=== PATIENT | female | born 1955 | race Caucasian/White ===

== ENCOUNTER 2016-10-21 16:37 | Emergency (ER) ==
[2016-10-21 16:46] VITALS: BP 145/83; TEMP 97.8; BMI 33.8
== END 2016-10-21 16:58 | disposition left against medical advice (07) ==
LOC: ED 16:37
DX: R05 Cough (principal); H92.01 Otalgia, right ear; J02.9 Acute pharyngitis, unspecified; R50.9 Fever, unspecified
CPT/HCPCS: 99282

== ENCOUNTER 2016-10-31 09:22 | Outpatient (CLI) ==
[2016-10-31 10:21] LABS: BASOPHILS # (AUTO) 0.1 K/uL (0-0.2); BASOPHILS % (AUTO) 0.8 % (0.0-3.0); EOSINOPHILS # (AUTO) 0.1 K/ul (0.0-0.7); EOSINOPHILS % (AUTO) 1.8 % (0.0-7.0); HEMOGLOBIN 12.6 g/dl (12.0-16.0); IMMATURE GRANULOCYTE % (AUTO) 0.5 % (0.0-5.0); LYMPHOCYTES # (AUTO) 2.6 K/uL (0.60-3.4); LYMPHOCYTES % (AUTO) 41.8 (10.0-50.0); MEAN CORPUSCULAR HEMOGLOBIN 27.3 pg (27.0-31.0); MEAN CORPUSCULAR HGB CONC 32.3 (31.8-35.4); MEAN CORPUSCULAR VOLUME 84.6 fl (81.0-99.0); MONOCYTES # (AUTO) 0.4 K/uL (0.4-2.0); MONOCYTES % (AUTO) 6.9 (0-10); NEUTROPHILS % (AUTO) 48.2; PLATELET COUNT 221 10^3/uL (140-440); RED BLOOD COUNT 4.61 10^6/ul (4.20-5.40); WHITE BLOOD COUNT 6.22 K/ul (4.6-10.2)
[2016-10-31 10:51] LABS: ALBUMIN 3.4 g/dL (3.4-5.0); ALBUMIN/GLOBULIN RATIO 0.83; ANION GAP 13.2; BILIRUBIN,TOTAL 0.3 mg/dL (0.00-1.20); BUN/CREATININE RATIO 11.68; CALCIUM 9.1 mg/dL (8.2-10.2); CHOL/HDL RATIO 4.6 (4.5-5.5); CREATININE 0.77 mg/dL (0.60-1.30); POTASSIUM 4.2 mmol/L (3.5-5.10); TOTAL PROTEIN 7.5 g/dL (6.4-8.2)
== END 2016-10-31 09:23 | disposition home or self-care (01) ==
LOC: LAB 09:22
PROVIDERS: ATTEND Emergency Medicine
DX: E11.9 Type 2 diabetes mellitus without complications (principal); I10 Essential (primary) hypertension; E78.5 Hyperlipidemia, unspecified; E66.9 Obesity, unspecified
CPT/HCPCS: 36415; 80053; 80061; 83036; 84443; 85025

== ENCOUNTER 2017-01-31 10:23 | Outpatient (CLI) ==
[2017-01-31 10:44] LABS: BASOPHILS % (AUTO) 0.4 % (0.0-3.0); EOSINOPHILS # (AUTO) 0.1 K/ul (0.0-0.7); EOSINOPHILS % (AUTO) 1.6 % (0.0-7.0); HEMATOCRIT 38.3 % (37.0-47.0); IMMATURE GRANULOCYTE % (AUTO) 0.3 % (0.0-5.0); LYMPHOCYTES # (AUTO) 2.8 K/uL (0.60-3.4); LYMPHOCYTES % (AUTO) 41.4 (10.0-50.0); MEAN CORPUSCULAR HGB CONC 33.9 (31.8-35.4); MEAN CORPUSCULAR VOLUME 82.5 fl (81.0-99.0); MONOCYTES # (AUTO) 0.4 K/uL (0.4-2.0); NEUTROPHILS # (AUTO) 3.4 K/ul (2.0-6.9); NEUTROPHILS % (AUTO) 50.3; PLATELET COUNT 169 10^3/uL (140-440); RED BLOOD COUNT 4.64 10^6/ul (4.20-5.40); WHITE BLOOD COUNT 6.72 K/ul (4.6-10.2)
[2017-01-31 11:25] LABS: ALBUMIN 3.6 g/dL (3.4-5.0); ALBUMIN/GLOBULIN RATIO 0.88; CALCIUM 9.5 mg/dL (8.2-10.2); POTASSIUM 4.2 mmol/L (3.5-5.10); TOTAL PROTEIN 7.7 g/dL (6.4-8.2)
[2017-01-31 11:26] LABS: ANION GAP 11.2; BILIRUBIN,TOTAL 0.38 mg/dL (0.00-1.20); BUN/CREATININE RATIO 12.82; CHOL/HDL RATIO 4.1 (4.5-5.5); CREATININE 0.78 mg/dL (0.60-1.30)
== END 2017-01-31 10:24 | disposition home or self-care (01) ==
LOC: LAB 10:23
PROVIDERS: ATTEND Emergency Medicine
DX: E11.9 Type 2 diabetes mellitus without complications (principal); I10 Essential (primary) hypertension; E78.5 Hyperlipidemia, unspecified
CPT/HCPCS: 36415; 80053; 80061; 82306; 82607; 83036; 84443; 85025

== ENCOUNTER 2017-04-10 19:59 | Emergency (ER) ==
[2017-04-10 20:02] VITALS: BP 152/76; TEMP 98; BMI 30.2
[2017-04-10 20:25] LABS: BASOPHILS # (AUTO) 0.1 K/uL (0-0.2); BASOPHILS % (AUTO) 0.6 % (0.0-3.0); EOSINOPHILS # (AUTO) 0.1 K/ul (0.0-0.7); EOSINOPHILS % (AUTO) 1.7 % (0.0-7.0); HEMATOCRIT 38.7 % (37.0-47.0); HEMOGLOBIN 12.8 g/dl (12.0-16.0); IMMATURE GRANULOCYTE % (AUTO) 0.2 % (0.0-5.0); LYMPHOCYTES # (AUTO) 3.6 K/uL (0.60-3.4); LYMPHOCYTES % (AUTO) 43.5 (10.0-50.0); MEAN CORPUSCULAR HEMOGLOBIN 27.7 pg (27.0-31.0); MEAN CORPUSCULAR HGB CONC 33.1 (31.8-35.4); MEAN CORPUSCULAR VOLUME 83.8 fl (81.0-99.0); MONOCYTES # (AUTO) 0.6 K/uL (0.4-2.0); MONOCYTES % (AUTO) 7.2 (0-10); NEUTROPHILS # (AUTO) 3.9 K/ul (2.0-6.9); NEUTROPHILS % (AUTO) 46.8; PLATELET COUNT 211 10^3/uL (140-440); RED BLOOD COUNT 4.62 10^6/ul (4.20-5.40); WHITE BLOOD COUNT 8.35 K/ul (4.6-10.2)
--- NOTE | 2017-04-10 20:29 | ED.PDOC ---
General ED Provider: Dr. IVAN CLAUDIO Chief Complaint: Chest Pain Stated Complaint: patient is a 61 year old female who comes to the ER with c/o pain to left shoulder radiating into scapula. states it makes her feel like she has to take a deep breath. Associated with diaphoresis and Nausea Time Seen by Physician: 20:26 Mode of Arrival: Walk-In Information Source: Patient Primary Care Provider: BORIS POWELLTaz Nursing and Triage Documentation Reviewed and Agree: Yes Review of Systems - Review Of Systems Constitutional: Reports: No symptoms Eyes: Reports: No symptoms Ears, Nose, Mouth, Throat: Reports: No symptoms Respiratory: Reports: Short of air Cardiac: Reports: Chest pain GI: Reports: Abdominal pain : Reports: No symptoms Musculoskeletal: Reports: No symptoms Skin: Reports: No symptoms Neurological: Reports: No symptoms Endocrine: Reports: No symptoms Hematologic/Lymphatic: Reports: No symptoms All Other Systems: Reviewed and Negative Past Medical History - Past Medical History Previously Healthy: Yes Endocrine: Reports: DM 2 Cardiovascular: Reports: Hypertension Respiratory: Reports: None Hematological: Reports: None Gastrointestinal: Reports: None Genitourinary: Reports: None Neuro/Psych: Reports: None Musculoskeletal: Reports: None Cancer: Reports: None Last Menstrual Period: n/a - Surgical History General Surgical History: Reports: Unknown - Family History Family History: Reports: Unknown - Social History Smoking Status: Never smoker Hx Substance Use: No Alcohol Screening: None Physical Exam - Physical Exam Appearance: Ill-appearing, Obese Ill-appearing: Mild Pain Distress: Mild Eyes: CHARLES, EOMI, Conjunctiva clear ENT: Ears normal, Nose normal, Oropharynx normal Neck: Supple Respiratory: Airway patent, Breath sounds clear, Breath sounds equal, Respirations nonlabored Cardiovascular: RRR, Pulses normal, No rub, No murmur GI/: Soft, Nontender, No masses, Bowel sounds normal, No Organomegaly Musculoskeletal: Normal strength, ROM intact, No edema, No calf tenderness Skin: Warm, Dry, Normal color Neurological: Sensation intact, Motor intact, Reflexes intact, Cranial nerves intact, Alert, Oriented Psychiatric: Affect appropriate, Mood appropriate Interpretation - Radiology Interpretation Radiology Interpretation By: ED Physician Radiology Results: Negative Exam Interpreted: Portable CXR - EKG Interpretation Rate: Normal Rhythm: Sinus Ectopy: None [place]: NL ST Segment: Normal Critical Care Note - Critical Care Note Total Time (mins): 20 Course - Course Hematology/Chemistry: 04/10/17 20:20 04/10/17 20:20 Orders, Labs, Meds: Lab Review 04/10/17 20:20 WBC 8.35 RBC 4.62 Hgb 12.8 Hct 38.7 MCV 83.8 MCH 27.7 MCHC 33.1 RDW Coeff of Wilfredo 12.7 Plt Count 211 Immature Gran % (Auto) 0.2 Neut % (Auto) 46.8 Lymph % (Auto) 43.5 [place] % (Auto) 7.2 Eos % (Auto) 1.7 Baso % (Auto) 0.6 Immature Gran # (Auto) 0.0 Neut # 3.9 Lymph # 3.6 H [place] # 0.6 Eos # 0.1 Baso # 0.1 Sodium 136 Potassium 4.2 Chloride 100 Carbon Dioxide 25 Anion Gap 15.2 BUN 12 Creatinine 0.81 Estimated GFR (MDRD) 72.00 BUN/Creatinine Ratio 14.81 Glucose 250 H Calcium 9.4 Total Bilirubin 0.30 AST 18 ALT 17 Alkaline Phosphatase 58 Total Creatine Kinase 42 Troponin I < 0.0100 Total Protein 7.6 Albumin 3.7 Globulin 3.9 Albumin/Globulin Ratio 0.95 Orders Category Date Time Status EKG-(ED ONLY) Stat CARDIO 04/10/17 20:10 Completed CBC W/ AUTO DIFF Stat LAB 04/10/17 20:20 Completed COMPREHENSIVE METABOLIC PANEL Stat LAB 04/10/17 20:20 Completed CREATINE KINASE Stat LAB 04/10/17 20:20 Completed TROPONIN I Stat LAB 04/10/17 20:20 Completed CHEST, 1V AP ONLY Stat RADS 04/10/17 20:10 Completed SHOULDER, LEFT MIN 2V Stat RADS 04/10/17 20:28 Completed Vital Signs: Temp Pulse Resp BP Pulse Ox 04/10/17 20:00 98.0 F 88 20 152/76 H 97 LIZZIE Risk Score Age >/= 65: No >/= 3 CAD Risk Factors: Yes Known CAD (Stenosis >/= 50%): No ASA Use in Past 7 Days: No Severe Angina (>/= 2 episodes in 24 hours): No EKG ST Changes >/= 0.5mm: No Postive Cardiac Marker: No LIZZIE Total Score: 1 LIZZIE Risk Score: Risk Score Odds of by 30D 0 0.1 (0.1-0.2) 1 0.3 (0.2-0.3) 2 0.4 (0.3-0.5) 3 0.7 (0.6-0.9) 4 1.2 (1.0-1.5) 5 2.2 (1.9-2.6) 6 3.0 (2.5-3.6) 7 4.8 (3.8-6.1) Departure - Departure Time of Disposition: 21:00 Disposition: AMA Discharge Problem: Dyspepsia, Chest pain Instructions: Chest Pain (ED) Condition: Stable Pt referred to PMD for follow-up: No Allergies/Adverse Reactions: Allergies morphine Adverse Reaction (Verified 04/10/17 20:04) tramadol HCl [From [facility]] Adverse Reaction (Verified 04/10/17 20:04) Nausea Home Medications: Ambulatory Orders Alprazolam [Xanax] 0.5 mg PO BEDTIME 09/15/15 Hydrocodone Bit/Acetaminophen [[place] 5-325] 1 tab PO DIRECTED 02/12/16 Lisinopril [Zestril] 5 mg PO DAILY 10/21/16 Ranitidine HCl [Zantac] 150 mg PO BIDAC 04/10/17
[2017-04-10] MEDS ORDERED: URO-JET MUCOUSMEMB STA (20:48)
[2017-04-10 20:51] LABS: ALANINE AMINOTRANSFERASE 17 U/L (12-78); ALBUMIN 3.7 g/dL (3.4-5.0); ALBUMIN/GLOBULIN RATIO 0.95; ALKALINE PHOSPHATASE 58 U/L (53-141); ANION GAP 15.2; ASPARTATE AMINO TRANSFERASE 18 U/L (15-37); BLOOD UREA NITROGEN 12 mg/dL (7-18); BUN/CREATININE RATIO 14.81; CALCIUM 9.4 mg/dL (8.2-10.2); CARBON DIOXIDE 25 mmol/L (21-32); CHLORIDE 100 mmol/L (98-107); CREATINE KINASE 42 U/L; CREATININE 0.81 mg/dL (0.60-1.30); GLUCOSE 250 mg/dL (70-110); POTASSIUM 4.2 mmol/L (3.5-5.10); SODIUM 136 mmol/L (136-145); TOTAL PROTEIN 7.6 g/dL (6.4-8.2)
--- NOTE | 2017-04-10 21:04 | DI ---
EXAM: Chest, one-view HISTORY: Chest and shoulder pain FINDINGS: Cardiac and mediastinal contours are normal. Pulmonary vasculature is normal. Lungs are clear. Bony thorax is unremarkable. IMPRESSION: Within normal limits
--- NOTE | 2017-04-10 21:05 | DI ---
EXAM: Left shoulder three view HISTORY: Shoulder pain FINDING/IMPRESSION: No acute bony or articular abnormality. Mild acromioclavicular joint osteoarthr itic enlargement. The glenohumeral joint appears normal.
== END 2017-04-10 21:04 | disposition left against medical advice (07) ==
LOC: ED 19:59
DX: R07.9 Chest pain, unspecified (principal); R10.13 Epigastric pain; E11.9 Type 2 diabetes mellitus without complications; I10 Essential (primary) hypertension; M25.512 Pain in left shoulder; Z79.899 Other long term (current) drug therapy
CPT/HCPCS: 36415; 80053; 82550; 84484; 85025; 93005; 93010; 99284

== ENCOUNTER 2017-06-14 14:15 | Outpatient (CLI) ==
[2017-06-14 14:44] LABS: BASOPHILS # (AUTO) 0.1 K/uL (0-0.2); BASOPHILS % (AUTO) 0.7 % (0.0-3.0); EOSINOPHILS # (AUTO) 0.1 K/ul (0.0-0.7); EOSINOPHILS % (AUTO) 1.9 % (0.0-7.0); HEMATOCRIT 36.3 % (37.0-47.0); HEMOGLOBIN 12.5 g/dl (12.0-16.0); IMMATURE GRANULOCYTE % (AUTO) 0.3 % (0.0-5.0); LYMPHOCYTES # (AUTO) 2.5 K/uL (0.60-3.4); LYMPHOCYTES % (AUTO) 36.5 (10.0-50.0); MEAN CORPUSCULAR HEMOGLOBIN 28.7 pg (27.0-31.0); MEAN CORPUSCULAR HGB CONC 34.4 (31.8-35.4); MEAN CORPUSCULAR VOLUME 83.4 fl (81.0-99.0); MONOCYTES # (AUTO) 0.4 K/uL (0.4-2.0); MONOCYTES % (AUTO) 5.8 (0-10); NEUTROPHILS # (AUTO) 3.7 K/ul (2.0-6.9); NEUTROPHILS % (AUTO) 54.8; PLATELET COUNT 169 10^3/uL (140-440); RED BLOOD COUNT 4.35 10^6/ul (4.20-5.40); WHITE BLOOD COUNT 6.72 K/ul (4.6-10.2)
[2017-06-14 16:09] LABS: ALBUMIN 3.4 g/dL (3.4-5.0); ALBUMIN/GLOBULIN RATIO 0.92; ANION GAP 18.1; BILIRUBIN,TOTAL 0.33 mg/dL (0.00-1.20); CALCIUM 9.5 mg/dL (8.2-10.2); CHOL/HDL RATIO 3.8 (4.5-5.5); CREATININE 0.8 mg/dL (0.60-1.30); POTASSIUM 4.1 mmol/L (3.5-5.10); TOTAL PROTEIN 7.1 g/dL (6.4-8.2)
[2017-06-15 06:16] LABS: CANCER ANTIGEN 27.29 11.7 U/mL (0.0-38.6)
[2017-06-15 07:20] LABS: CARCINOEMBRYONIC ANTIGEN 2.2 ng/mL (0.0-4.7)
== END 2017-06-14 14:16 | disposition home or self-care (01) ==
LOC: LAB 14:15
PROVIDERS: ATTEND Internal Medicine
DX: I10 Essential (primary) hypertension (principal); E66.9 Obesity, unspecified; C50.911 Malignant neoplasm of unspecified site of right female breast
CPT/HCPCS: 36415; 80053; 80061; 82378; 83036; 84443; 85025; 86300

== ENCOUNTER 2017-09-24 12:56 | Outpatient (CLI) ==
[2017-09-24 13:15] LABS: BASOPHILS % (AUTO) 0.6 % (0.0-3.0); EOSINOPHILS # (AUTO) 0.1 K/ul (0.0-0.7); HEMATOCRIT 38.2 % (37.0-47.0); HEMOGLOBIN 13.1 g/dl (12.0-16.0); IMMATURE GRANULOCYTE % (AUTO) 0.3 % (0.0-5.0); LYMPHOCYTES # (AUTO) 2.5 K/uL (0.60-3.4); LYMPHOCYTES % (AUTO) 38.4 (10.0-50.0); MEAN CORPUSCULAR HEMOGLOBIN 28.5 pg (27.0-31.0); MEAN CORPUSCULAR HGB CONC 34.3 (31.8-35.4); MONOCYTES # (AUTO) 0.4 K/uL (0.4-2.0); MONOCYTES % (AUTO) 6.6 (0-10); NEUTROPHILS # (AUTO) 3.4 K/ul (2.0-6.9); NEUTROPHILS % (AUTO) 52.1; PLATELET COUNT 181 10^3/uL (140-440); WHITE BLOOD COUNT 6.53 K/ul (4.6-10.2)
[2017-09-24 13:56] LABS: ALBUMIN 3.3 g/dL (3.4-5.0); ALBUMIN/GLOBULIN RATIO 0.8; ANION GAP 12.1; BILIRUBIN,TOTAL 0.37 mg/dL (0.00-1.20); BUN/CREATININE RATIO 7.21; CALCIUM 9.4 mg/dL (8.2-10.2); CHOL/HDL RATIO 5.1 (4.5-5.5); CREATININE 0.97 mg/dL (0.60-1.30); POTASSIUM 4.1 mmol/L (3.5-5.10); TOTAL PROTEIN 7.4 g/dL (6.4-8.2)
== END 2017-09-24 12:57 | disposition home or self-care (01) ==
LOC: LAB 12:56
PROVIDERS: ATTEND Internal Medicine
DX: E78.5 Hyperlipidemia, unspecified (principal); E11.9 Type 2 diabetes mellitus without complications; I10 Essential (primary) hypertension; E66.9 Obesity, unspecified
CPT/HCPCS: 36415; 80053; 80061; 83036; 84443; 85025

== ENCOUNTER 2017-09-28 14:48 | Outpatient (CLI) ==
--- NOTE | 2017-09-28 15:38 | DI ---
EXAM: Two views of the right hip HISTORY: Right hip pain. COMPARISON: Right femur x-rays same day FINDINGS: There is mild narrowing and osteophyte formation of the right hip. There is no lytic or bl astic lesion. There is no displaced fracture or dislocation. Soft tissues are unremarkable. IMPRESSION: Mild degenerative disease of the right hip.
== END 2017-09-28 14:49 | disposition home or self-care (01) ==
LOC: RAD 14:48
PROVIDERS: ATTEND Internal Medicine
DX: M25.551 Pain in right hip (principal)

== ENCOUNTER 2017-12-17 10:21 | Outpatient (CLI) | END 2017-12-17 10:22 | disposition home or self-care (01) | LOC: LAB 10:21 | PROVIDERS: ATTEND Internal Medicine | DX: E78.5 Hyperlipidemia, unspecified (principal); E11.9 Type 2 diabetes mellitus without complications; I10 Essential (primary) hypertension; E66.9 Obesity, unspecified | CPT/HCPCS: 36415; 80053; 83036; 85025 ==

== ENCOUNTER 2018-04-25 14:08 | Outpatient (CLI) | END 2018-04-25 14:09 | disposition home or self-care (01) | LOC: LAB 14:08 | PROVIDERS: ATTEND Internal Medicine | DX: E11.9 Type 2 diabetes mellitus without complications (principal); E78.5 Hyperlipidemia, unspecified; I10 Essential (primary) hypertension | CPT/HCPCS: 36415; 80053; 80061; 83036; 84443; 85025 ==

== ENCOUNTER 2018-11-27 14:30 | Emergency (ER) ==
[2018-11-27 14:34] VITALS: BP 148/77; TEMP 97; BMI 34.4
--- NOTE | 2018-11-27 16:59 | ED.PDOC ---
General ED Provider: Dr. YESENIA OLIVA Chief Complaint: Back Pain Stated Complaint: was hospitalised in OCT 01 for kidney inf,Hurts in CVA right.radiates Time Seen by Physician: 18:20 Mode of Arrival: Walk-In Information Source: Patient Exam Limitations: No limitations Primary Care Provider: YUMIKO MCARTHUR Referred to ED by: Other Nursing and Triage Documentation Reviewed and Agree: Yes Does patient meet sepsis criteria?: No System Inflammatory Response Syndrome: Not Applicable Sepsis Protocol: For patient's 13 years and over: Temp is 96.8 and below OR 101 and greater Pulse >90 BPM Resp >20/minute Acutely Altered Mental Status Are patient's symptoms suggestive of a new infection, such as: -Pneumonia -Skin, Soft Tissue -Endocarditis -UTI -Bone, Joint Infection -Implantable Device -Acute Abdominal Infection -Wound Infection -Meningitis -Blood Stream Catheter Infection -Unknown Complaint Exam - Complaint/Exam Patient Complains of: Reports: Pain Onset/Duration: todauy in right CVA Symptoms Are: Still present Timing: Intermittent Episodes of Voiding Over Last 12 Hours: 4 Initial Severity: Moderate Current Severity: Mild Location of Pain: Reports: Right, Flank, Radiating Character: Reports: Constant pressure, Dull Aggravating: Reports: Movement Alleviating: Reports: Position Associated Signs and Symptoms: Reports: Back pain Related History: Reports: Similar episode Ectopic Risk Factors: Reports: None Abdominal Findings: Present: CVA Tenderness Differential Diagnoses: Renal Colic, Ureteral Stone, UTI Review of Systems - Review Of Systems Constitutional: Reports: No symptoms Eyes: Reports: No symptoms Ears, Nose, Mouth, Throat: Reports: No symptoms Respiratory: Reports: No symptoms Cardiac: Reports: No symptoms GI: Reports: No symptoms : Reports: No symptoms Musculoskeletal: Reports: No symptoms Skin: Reports: No symptoms Neurological: Reports: No symptoms Endocrine: Reports: No symptoms Hematologic/Lymphatic: Reports: No symptoms All Other Systems: Reviewed and Negative Past Medical History - Past Medical History Previously Healthy: Yes Endocrine: Reports: DM 2 Cardiovascular: Reports: Hypertension Respiratory: Reports: None Hematological: Reports: None Gastrointestinal: Reports: None Genitourinary: Reports: None Neuro/Psych: Reports: None Musculoskeletal: Reports: Back Pain Cancer: Reports: None Last Menstrual Period: none - Surgical History General Surgical History: Reports: Unknown - Family History Family History: Reports: Unknown - Social History Smoking Status: Never smoker Hx Substance Use: No Alcohol Screening: None Physical Exam - Physical Exam Appearance: Well-appearing Ill-appearing: None Pain Distress: Mild Eyes: CHARLES ENT: Ears normal Neck: Supple Respiratory: Airway patent GI/: Soft Musculoskeletal: Normal strength Skin: Warm Neurological: Sensation intact Critical Care Note - Critical Care Note Total Time (mins): 0 Course - Course Hematology/Chemistry: 11/27/18 17:15 11/27/18 17:15 Orders, Labs, Meds: Lab Review 11/27/18 11/27/18 11/27/18 16:29 17:15 17:15 WBC 9.58 RBC 4.60 Hgb 12.6 Hct 38.8 MCV 84.3 MCH 27.4 MCHC 32.5 RDW Coeff of Wilfredo 13.2 Plt Count 184 Immature Gran % (Auto) 0.3 Neut % (Auto) 70.3 Lymph % (Auto) 21.1 [place] % (Auto) 6.5 Eos % (Auto) 1.4 Baso % (Auto) 0.4 Immature Gran # (Auto) 0.0 Neut # (Auto) 6.7 Lymph # (Auto) 2.0 [place] # (Auto) 0.6 Eos # (Auto) 0.1 Baso # (Auto) 0.0 Sodium 135.8 Potassium 4.84 Chloride 97.3 L Carbon Dioxide 29.9 Anion Gap 13.44 BUN 16.7 Creatinine 0.66 Estimated GFR (MDRD) 91.00 BUN/Creatinine Ratio 25.30 Glucose 320.7 H Calcium 9.56 Total Bilirubin 0.51 AST 27.1 ALT 23.5 Alkaline Phosphatase 71.0 Total Protein 7.97 Albumin 4.26 Globulin 3.71 Albumin/Globulin Ratio 1.14 Urine Color Yellow Urine Clarity Clear Urine pH 5.5 Ur Specific [place] 1.025 Urine Protein Negative Urine Glucose (UA) 2+ Urine Ketones Negative Urine Blood Trace-intact Urine Nitrite Negative Urine Bilirubin Negative Urine Urobilinogen 0.2 Ur Leukocyte Esterase Trace Urine Microscopic RBC 2-5 Urine Microscopic WBC 5-10 Ur Squamous Epith Cells 50-100 Urine Bacteria 3+ Orders Category Date Time Status ED IV/MEDIPORT/POWERPORT .ONCE EMERGENCY 11/27/18 17:05 Active CBC W/ AUTO DIFF Stat LAB 11/27/18 17:15 Completed COMPREHENSIVE METABOLIC PANEL Stat LAB 11/27/18 17:15 Completed URINALYSIS C & S IF INDICATED Stat LAB 11/27/18 16:29 Completed URINE CULTURE Stat LAB 11/27/18 16:29 Received 0.9 % Sodium Chloride [Saline Flush] MEDS 11/27/18 17:05 Ordered 1 syr IVF PRN PRN Hydromorphone HCl [Dilaudid 1 mg/ml Syringe] MEDS 11/27/18 17:34 Discontinued 1 mg IVP ONCE STA Ondansetron HCl/Pf [Zofran 4 mg/2 ml] MEDS 11/27/18 17:15 Discontinued 4 mg IVP ONCE STA Sodium Chloride 0.9% [Sodium Chloride] 1,000 ml MEDS 11/27/18 17:05 Discontinued IV BOLUS Medications Generic Name Dose Route Start Last Admin Trade Name Freq PRN Reason Stop Dose Admin Sodium Chloride 1 syr 11/27/18 17:05 11/27/18 17:42 Saline Flush IVF 1 syr PRN PRN Administration To flush IV Discontinued Medications Generic Name Dose Route Start Last Admin Trade Name Freq PRN Reason Stop Dose Admin Hydromorphone HCl 1 mg 11/27/18 17:34 11/27/18 17:42 Dilaudid 1 Mg/Ml Syringe IVP 11/27/18 17:35 1 mg ONCE STA Administration Sodium Chloride 1,000 mls @ 1,000 mls/hr 11/27/18 17:05 11/27/18 17:42 Sodium Chloride IV 11/27/18 18:04 1,000 mls/hr BOLUS STA Administration Ondansetron HCl 4 mg 11/27/18 17:15 11/27/18 17:42 Zofran 4 Mg/2 Ml IVP 11/27/18 17:16 4 mg ONCE STA Administration Vital Signs: Temp Pulse Resp BP Pulse Ox 11/27/18 14:30 97.0 F L 111 H 20 148/77 H 96 Departure - Departure Time of Disposition: 18:16 Disposition: HOME SELF-CARE Discharge Problem: Diabetes mellitus Instructions: Urinary Tract Infection in Women (ED) Condition: Good Pt referred to PMD for follow-up: Yes (follow with PCP for hyoergkycemia,uti.) IPMP verified?: No Additional Instructions: Cipro 500 qd x 5 days,Phenergan tab 25 ng daily # 5 tab. Allergies/Adverse Reactions: Allergies morphine Adverse Reaction (Verified 09/17/18 21:41) tramadol HCl [From [facility]] Adverse Reaction (Verified 09/17/18 21:41) Nausea Home Medications: Ambulatory Orders Alprazolam [Xanax] 0.5 mg PO BEDTIME PRN 09/15/15 Hydrocodone Bit/Acetaminophen [[place] 5-325] 1 tab PO TID 02/12/16 Lisinopril [Zestril] 5 mg PO DAILY 10/21/16 Ranitidine HCl [Zantac] 150 mg PO BIDAC 04/10/17 Disposition Discussed With: Patient
[2018-11-27] MEDS ORDERED: SODIUM CHLORIDE 1,000 ML IV STA (17:05)
[2018-11-27] MEDS ORDERED: ZOFRAN 4 MG/2 ML IM STA (17:06)
[2018-11-27] MEDS ORDERED: ZOFRAN 4 MG/2 ML IVP STA (17:15)
[2018-11-27] MEDS ORDERED: MORPHINE 4 MG/ML SYRINGE IVP STA (17:20)
[2018-11-27] MEDS ORDERED: DILAUDID 1 MG/ML SYRINGE IVP STA (17:34)
== END 2018-11-27 18:31 | disposition home or self-care (01) ==
LOC: ED 14:30
DX: N39.0 Urinary tract infection, site not specified (principal); E11.65 Type 2 diabetes mellitus with hyperglycemia; I10 Essential (primary) hypertension
CPT/HCPCS: 36415; 80053; 81001; 85025; 87086; 87186; 96361; 96374; 96375; 99283

== ENCOUNTER 2018-11-28 21:07 | Emergency (ER) ==
[2018-11-28 21:16] VITALS: BP 120/69; TEMP 98.1; BMI 34.2
== END 2018-11-28 21:30 | disposition left against medical advice (07) ==
LOC: ED 21:07
DX: R11.10 Vomiting, unspecified (principal); N39.0 Urinary tract infection, site not specified

== ENCOUNTER 2019-01-03 13:51 | Outpatient (CLI) | payer OTHER ==
--- NOTE | 2019-01-03 14:27 | DI ---
EXAM: Four views of the right knee. History: Right knee pain and trauma. Comparison: Right knee radiograph 01/02/2014 Findings: No acute fracture or dislocation. Patellar enthesiopathy. Moderate to severe narrowing o f the medial compartment. Moderate narrowing of the lateral and patellofemoral compartments. There is osteophyte formation. This has progressed compared to the prior study Impression: 1. No acute osseous abnormality. 2. Progressive osteoarthritis
== END 2019-01-03 13:52 | disposition home or self-care (01) ==
LOC: RAD 13:51
PROVIDERS: ATTEND Internal Medicine
DX: M25.561 Pain in right knee (principal); W19.XXXA Unspecified fall, initial encounter

== ENCOUNTER 2019-03-11 00:40 | Outpatient (CLI) ==
[2019-03-11 05:17] VITALS: BMI 27.9
== END 2019-03-11 00:55 | disposition critical access hospital (66) ==
LOC: AMBL 00:40
PROVIDERS: ATTEND Family Medicine
DX: R50.9 Fever, unspecified (principal); M54.5 Low back pain; R11.2 Nausea with vomiting, unspecified; R00.0 Tachycardia, unspecified

== ENCOUNTER 2019-03-11 01:03 | Inpatient (IN) ==
[2019-03-11] MEDS ORDERED: TYLENOL PO STA (01:26)
[2019-03-11] MEDS: SODIUM CHLORIDE 1,000 ML IV STA ×2 (01:30→08:38)
[2019-03-11] MEDS ORDERED: ZOFRAN 4 MG/2 ML IVP STA (01:59)
--- NOTE | 2019-03-11 02:47 | CT ---
EXAM: CT chest without intravenous contrast 03/11/2019. Sagittal and coronal reformatted images obt ained HISTORY: Cough COMPARISON: 04/10/2017, 10/20/2015 FINDINGS: The heart size appears within normal limits. There is no pericardial effusion. 4 mm noncalcified nodule in the right lung on image 29 demonstrates long-term stability. 3 mm nodule s on image 31 also demonstrate long-term stability. Atelectasis and/or pneumonitis within the dependent aspect of both lower lobes. No pulmonary consoli dation, effusion or pneumothorax. Limited views of the upper abdomen show no acute abnormality. No acute osseous abnormality. IMPRESSION: 1. Bibasilar atelectasis and/or pneumonitis. 2. No pulmonary consolidation, effusion or pneumothorax 3. Small noncalcified nodules demonstrate long-term stability consistent with benign etiology.
--- NOTE | 2019-03-11 02:55 | CT ---
EXAM: CT of the abdomen and pelvis without contrast. HISTORY: Flank pain. PROCEDURE: Contiguous axial CT images of the abdomen and pelvis without contrast with coronal and sa gittal reformats. FINDINGS: Comparison made with CT of 09/17/2018. There is motion artifact which limits the exam. Th e liver is normal in appearance. The gallbladder is not visualized. The pancreas, spleen and adrena l glands are normal in appearance. There are nonobstructive calcifications in both kidneys measuring up to 2 mm. No hydronephrosis. The ureters are incompletely visualized. There is a stable 7 mm hy perdense lesion in the upper pole of the left kidney probably representing a hemorrhagic cyst. The a bdominal aorta is within normal limits in diameter. The appendix is not visualized. There is a vent ral hernia measuring 4.5 x 7.4 cm containing a short segment of the transverse colon with no evidence of obstruction or incarceration. There is diverticulosis of the colon with no evidence of diverticu litis. There is fecal stasis in the colon. No free fluid or free air in the abdomen or pelvis. The bladder is minimally filled and normal in appearance. There is an interval increase in size of a lo bulated soft tissue mass in the right mid pelvis measuring 7.8 x 5 cm (previously 7.3 x 3.6 cm). The re are degenerative changes in the spine. Impression: Interval increase in size of a 7.8 x 5 cm mass in the right pelvis, suspicious for malign prudence. Diverticulosis of the colon with no evidence of diverticulitis. Fecal stasis in the colon. Ventral hernia as described. Nonobstructive bilateral nephrolithiasis as described. The ureters are incompletely visualized and a nonobstructive ureterolith cannot be excluded. Cholecystectomy.
[2019-03-11] MEDS ORDERED: ROCEPHIN 1 GM in SODIUM CHLORIDE 50 ML IV STA (03:10)
[2019-03-11] MEDS ORDERED: PHENERGAN 25 MG/ML VIAL 25 MG in SODIUM CHLORIDE 50 ML IV STA (03:10)
--- NOTE | 2019-03-11 03:13 | ED.PDOC ---
General ED Provider: Dr. KAVITHA CHANG-ER Chief Complaint: Back Pain Stated Complaint: i have a fever and my back hurts Time Seen by Physician: 01:15 Mode of Arrival: Ambulance Information Source: Patient, EMT Exam Limitations: No limitations Primary Care Provider: YUMIKO BLAIR Nursing and Triage Documentation Reviewed and Agree: Yes Does patient meet sepsis criteria?: No System Inflammatory Response Syndrome: Not Applicable Sepsis Protocol: For patient's 13 years and over: Temp is 96.8 and below OR 101 and greater Pulse >90 BPM Resp >20/minute Acutely Altered Mental Status Are patient's symptoms suggestive of a new infection, such as: -Pneumonia -Skin, Soft Tissue -Endocarditis -UTI -Bone, Joint Infection -Implantable Device -Acute Abdominal Infection -Wound Infection -Meningitis -Blood Stream Catheter Infection -Unknown Complaint Exam - UTI Female Complaint/Exam Onset/Duration: 2 days Symptoms Are: Still present Timing: Constant Initial Severity: Mild Current Severity: Mild Location of Pain: Reports: Flank Associated Signs and Symptoms: Reports: Fever, Chills, Flank pain Patient Rh Status: Unknown Related Surgical History: Reports: None CVA Tenderness: Yes Suprapubic Tenderness: No Differential Diagnoses: Other Review of Systems - Review Of Systems Constitutional: Reports: Chills, Fever, Weakness Eyes: Reports: No symptoms Ears, Nose, Mouth, Throat: Reports: No symptoms Respiratory: Reports: No symptoms Cardiac: Reports: No symptoms GI: Reports: Nausea : Reports: No symptoms Musculoskeletal: Reports: Back pain Skin: Reports: No symptoms Neurological: Reports: No symptoms Endocrine: Reports: No symptoms Hematologic/Lymphatic: Reports: No symptoms All Other Systems: Reviewed and Negative Past Medical History - Past Medical History Previously Healthy: Yes Endocrine: Reports: DM 2 Cardiovascular: Reports: Hypertension Respiratory: Reports: None Hematological: Reports: None Gastrointestinal: Reports: None Genitourinary: Reports: None Neuro/Psych: Reports: None Musculoskeletal: Reports: Back Pain Cancer: Reports: None Last Menstrual Period: UNKNOWN - Surgical History General Surgical History: Reports: Unknown - Family History Family History: Reports: Unknown - Social History Smoking Status: Never smoker Hx Substance Use: No Alcohol Screening: None - Immunizations Tetanus Shot up to Date: (UNKNOWN) Physical Exam - Physical Exam Appearance: Well-appearing Ill-appearing: Moderate Eyes: CHARLES, EOMI, Conjunctiva clear ENT: Ears normal, Nose normal, Oropharynx normal Neck: Supple Respiratory: Airway patent Cardiovascular: Tachycardia GI/: Soft, Nontender, No masses, Bowel sounds normal, No Organomegaly Musculoskeletal: Normal strength, ROM intact, No edema, No calf tenderness Skin: Warm, Dry, Normal color Neurological: Sensation intact, Motor intact, Reflexes intact, Cranial nerves intact, Alert, Oriented Psychiatric: Affect appropriate, Mood appropriate Interpretation - Radiology Interpretation Radiology Interpretation By: Radiologist Radiology Results: Negative Exam Interpreted: CT Scan - EKG Interpretation Time of EKG #1: 01:50 Rate: Tachy Rhythm: Sinus Ectopy: None [place]: NL ST Segment: Normal Interpretation: sinus tachy Physician Notification - Case Discussed Physician Notified: dr blair Time of Notification: 03:16 Critical Care Note - Critical Care Note Total Time (mins): 30 Course - Course Hematology/Chemistry: 03/11/19 01:55 03/11/19 01:55 Orders, Labs, Meds: Lab Review 03/11/19 03/11/19 03/11/19 01:30 01:55 01:55 WBC 11.43 H RBC 4.21 Hgb 11.8 L Hct 36.1 L MCV 85.7 MCH 28.0 MCHC 32.7 RDW Coeff of Wilfredo 12.6 Plt Count 162 Immature Gran % (Auto) 0.3 Neut % (Auto) 82.7 Lymph % (Auto) 8.3 L [place] % (Auto) 7.1 Eos % (Auto) 1.3 Baso % (Auto) 0.3 Immature Gran # (Auto) 0.0 Neut # (Auto) 9.4 H Lymph # (Auto) 1.0 [place] # (Auto) 0.8 Eos # (Auto) 0.2 Baso # (Auto) 0.0 Sodium 134.4 L Potassium 4.49 Chloride 101.2 Carbon Dioxide 22.9 Anion Gap 14.79 BUN 10.5 Creatinine 0.54 L Estimated GFR (MDRD) 115.00 BUN/Creatinine Ratio 19.44 Glucose 339.6 H Lactic Acid Calcium 9.18 Total Bilirubin 0.73 AST 28.7 ALT 20.0 Alkaline Phosphatase 63.3 Total Protein 6.86 Albumin 3.96 Globulin 2.90 Albumin/Globulin Ratio 1.36 Amylase 42.6 Lipase 21.4 L Procalcitonin Urine Color Light Urine Clarity Slightly Urine pH 5.5 Ur Specific [place] 1.010 Urine Protein Negative Urine Glucose (UA) Negative Urine Ketones Negative Urine Blood Trace-intact Urine Nitrite Positive Urine Bilirubin Negative Urine Urobilinogen 0.2 Ur Leukocyte Esterase Negative Urine Microscopic WBC 2-5 Ur Squamous Epith Cells 2-5 Urine Bacteria 3+ 03/11/19 03/11/19 01:55 01:55 WBC RBC Hgb Hct MCV MCH MCHC RDW Coeff of Wilfredo Plt Count Immature Gran % (Auto) Neut % (Auto) Lymph % (Auto) [place] % (Auto) Eos % (Auto) Baso % (Auto) Immature Gran # (Auto) Neut # (Auto) Lymph # (Auto) [place] # (Auto) Eos # (Auto) Baso # (Auto) Sodium Potassium Chloride Carbon Dioxide Anion Gap BUN Creatinine Estimated GFR (MDRD) BUN/Creatinine Ratio Glucose Lactic Acid 2.15 H Calcium Total Bilirubin AST ALT Alkaline Phosphatase Total Protein Albumin Globulin Albumin/Globulin Ratio Amylase Lipase Procalcitonin 0.48 Urine Color Urine Clarity Urine pH Ur Specific [place] Urine Protein Urine Glucose (UA) Urine Ketones Urine Blood Urine Nitrite Urine Bilirubin Urine Urobilinogen Ur Leukocyte Esterase Urine Microscopic WBC Ur Squamous Epith Cells Urine Bacteria Orders Category Date Time Status EKG-(ED ONLY) Stat CARDIO 03/11/19 01:24 Completed ED IV/MEDIPORT/POWERPORT .ONCE EMERGENCY 03/11/19 01:24 Active AMYLASE Stat LAB 03/11/19 01:55 Completed BLOOD CULTURE (ED ONLY) Stat LAB 03/11/19 01:55 Received CBC W/ AUTO DIFF Stat LAB 03/11/19 01:55 Completed COMPREHENSIVE METABOLIC PANEL Stat LAB 03/11/19 01:55 Completed LACTIC ACID Stat LAB 03/11/19 01:55 Completed LIPASE Stat LAB 03/11/19 01:55 Completed PROCALCITONIN Stat LAB 03/11/19 01:55 Completed URINALYSIS C & S IF INDICATED Stat LAB 03/11/19 01:30 Completed URINE CULTURE Stat LAB 03/11/19 02:16 Received 0.9 % Sodium Chloride [Saline Flush] MEDS 03/11/19 01:24 Ordered 1 syr IVF PRN PRN Acetaminophen [Tylenol] MEDS 03/11/19 01:26 Discontinued 650 mg PO ONCE STA Ceftriaxone Sodium [Rocephin] 1 gm MEDS 03/11/19 03:10 Active 0.9 % Sodium Chloride [Sodium Chloride] 50 ml IV ONCE Ondansetron HCl/Pf [Zofran 4 mg/2 ml] MEDS 03/11/19 01:59 Discontinued 4 mg IVP ONCE STA Promethazine HCl [Phenergan 25 mg/ml Vial] 25 mg MEDS 03/11/19 03:10 Active 0.9 % Sodium Chloride [Sodium Chloride] 50 ml IV ONCE Sodium Chloride 0.9% [Sodium Chloride] 1,000 ml MEDS 03/11/19 01:25 Active IV 100 mls/hr CT ABD/PEL WO RENAL STONE PROT Stat RADS 03/11/19 01:[address] CHEST W/O CONTRAST Stat RADS 03/11/19 01:25 Completed Medications Generic Name Dose Route Start Last Admin Trade Name Freq PRN Reason Stop Dose Admin Sodium Chloride 1,000 mls @ 100 mls/hr 03/11/19 01:25 Sodium Chloride IV 03/11/19 11:24 .Q10H STA Promethazine HCl 25 mg/ Sodium 51 mls @ 75 mls/hr 03/11/19 03:10 Chloride IV 03/11/19 03:50 ONCE STA Ceftriaxone Sodium 1 gm/ 50 mls @ 75 mls/hr 03/11/19 03:10 Sodium Chloride IV 03/11/19 03:49 ONCE STA Sodium Chloride 1 syr 03/11/19 01:24 Saline Flush IVF PRN PRN To flush IV Discontinued Medications Generic Name Dose Route Start Last Admin Trade Name Freq PRN Reason Stop Dose Admin Acetaminophen 650 mg 03/11/19 01:26 Tylenol PO 03/11/19 01:27 ONCE STA Ondansetron HCl 4 mg 03/11/19 01:59 03/11/19 02:18 Zofran 4 Mg/2 Ml IVP 03/11/19 02:00 4 mg ONCE STA Administration Vital Signs: Temp Pulse Resp BP Pulse Ox 03/11/19 01:04 104.1 F H 121 H 20 152/69 H 96 Departure - Departure Time of Disposition: 03:16 Disposition: ADMITTED INPATIENT Discharge Problem: Pyelonephritis, acute Instructions: Urinary Tract Infection in Women (ED) Condition: Good Pt referred to PMD for follow-up: Yes IPMP verified?: No Allergies/Adverse Reactions: Allergies morphine Adverse Reaction (Verified 03/11/19 01:14) Vomiting tramadol HCl [From [facility]] Adverse Reaction (Verified 03/11/19 01:14) Nausea Home Medications: Ambulatory Orders Alprazolam [Xanax] 0.5 mg PO BEDTIME 09/15/15 Hydrocodone Bit/Acetaminophen [[place] 5-325] 1 tab PO TID PRN 02/12/16 Lisinopril [Zestril] 20 mg PO DAILY 10/21/16 Ranitidine HCl [Zantac] 150 mg PO BIDAC 04/10/17 Promethazine HCl [Phenergan Tab] 25 mg PO DAILY PRN 11/28/18 Disposition Discussed With: Patient
[2019-03-11] MEDS ORDERED: TYLENOL PO PRN (03:21)
[2019-03-11] MEDS ORDERED: PHENERGAN 25 MG/ML VIAL ONE ×2 (03:37→12:37)
[2019-03-11] MEDS: PHENERGAN 25 MG/ML VIAL 25 MG in SODIUM CHLORIDE 50 ML IV PRN ×2 (03:44→12:41)
[2019-03-11] MEDS ORDERED: ROCEPHIN ONE (04:51)
[2019-03-11] MEDS ORDERED: LEVAQUIN 100 ML IV ONE (04:52)
[2019-03-11 05:17] VITALS: BMI 27.9
[2019-03-11] MEDS: DILAUDID 0.5 MG/0.5 ML SYRINGE IVP PRN ×2 (05:44→11:22)
[2019-03-11] MEDS: LEVAQUIN 500 MG in PREMIX 100 ML D5W 1 BAG IV SCH ×2 (05:47→09:00)
[2019-03-11] MEDS: ZANTAC PO SCH ×2 (06:17→16:35)
[2019-03-11] MEDS: HUMULIN R SUBCUT PRN ×4 (06:22→21:27)
[2019-03-11] MEDS: NORCO 5-325 PO PRN ×3 (08:35→21:35)
[2019-03-11] MEDS ORDERED: ZESTRIL PO SCH (09:00)
[2019-03-11] MEDS: ROCEPHIN 1 GM in SODIUM CHLORIDE 50 ML IV SCH (09:00)
[2019-03-11] MEDS ORDERED: NON-FORMULARY MEDICATION (Metformin Hcl [Metformin Hcl] 500 MG) PO SCH (09:00)
[2019-03-11] MEDS: GLUCOPHAGE PO SCH (09:19)
[2019-03-11] MEDS: ZESTRIL PO SCH (09:20)
--- NOTE | 2019-03-11 10:53 | PCM.PROG ---
Attending Provider: ATTENDING PROVIDER: Dr. YUMIKO MCARTHUR This patient is seen with Xochitl Peck, Nurse Practitioner. DATE OF SERVICE: 03/11/19 SUBJECTIVE: This 63 year old WHITE/ F was hospitalized 03/11/19. The patient is sitting on side of bed resting comfortably. She came to ER with temperature of 105 and vomiting. She is tolerating IV antibiotics. Vomiting has improved at the moment. REVIEW OF SYSTEMS: CONSTITUTIONAL: Weakness. No night sweats. No fatigue, malaise, lethargy. Fever. HEENT: Eyes: No visual changes. No eye pain. No eye discharge. ENT: No runny nose. No epistaxis. No sinus pain. No odynophagia. No congestion. RESPIRATORY: No cough, no congestion. No hemoptysis. No shortness of breath. CARDIOVASCULAR: No angina symptoms. No CHF symptoms. No atypical chest pain for CAD. No palpitations. No orthopnea.. GASTROINTESTINAL: Flank pain, abdominal pain. Nausea and vomiting. No diarrhea or constipation. No hematemesis. No hematochezia. GENITOURINARY: Dysuria. No urgency. No frequency. No hematuria. No obstructive symptoms. No discharge. No pain. No significant abnormal bleeding. MUSCULOSKELETAL: No musculoskeletal pain; no joint swelling. NEUROLOGICAL: Awake, alert, oriented to time, place and person. No headache. No neck pain. No syncope. No seizures. No dizziness. PSYCHIATRIC: Not anxious. No depression. No suicidal thoughts. No homicidal thoughts. SKIN: No rash. No lesions. No wounds. ENDOCRINE: No unexplained weight loss. No weight gain. HEMATOLOGIC/LYMPHATIC: No anemia. No purpura. No petechiae. No prolonged or excessive bleeding. No palpable lymph nodes. PHYSICAL EXAMINATION: GENERAL: The patient is awake, alert and oriented, sitting in bed in no distress. VITAL SIGNS: Temperature 98.9 F, Pulse 128, Respiratory Rate 20, BP 118/66, Pulse Ox 94% HEENT: Head normocephalic, atraumatic. Eyes: Extraocular muscles are intact. Pupils are equal, round and reactive to light and accommodation. Ears: No lesions. Nose appeared normal. Throat: No exudate or erythema. NECK: Supple. No JVD, no carotid bruit. No lymphadenopathy or thyromegaly. LUNGS: Clear to auscultation. Percussion note normal. Chest symmetrical. HEART: S1, S2, no S3. No murmurs. No cyanosis or clubbing. No ascites. Pulses: Dorsalis pedis and posterior tibial pulses +1 to +2 both sides. ABDOMEN: Soft. Non-tender. Bowel sounds active. No CVA tenderness. No mass felt. EXTREMITIES: No edema. Full range of motion of all extremities, equal. NEUROLOGIC: No focal deficit. Cranial nerves II through XII are grossly intact. No headache, no double vision or headache. SKIN: Not dry. Intact. Turgor-normal. LYMPHATIC: No palpable lymph nodes/no lymphedema. MUSCULOSKELETAL: Normal joints with no swelling. Muscle tone is normal. LAB REVIEW: 03/11/19 01:55 03/11/19 01:55 03/11/19 01:55: Procalcitonin 0.48 03/11/19 01:55: Lactic Acid 2.15 H 03/11/19 01:55: Sodium 134.4 L, Potassium 4.49, Chloride 101.2, Carbon Dioxide 22.9, Anion Gap 14.79, BUN 10.5, Creatinine 0.54 L, Estimated GFR (MDRD) 115.00 , BUN/Creatinine Ratio 19.44, Glucose 339.6 H, Calcium 9.18, Total Bilirubin 0.73, AST 28.7, ALT 20.0, Alkaline Phosphatase 63.3, Total Protein 6.86, Albumin 3.96, Globulin 2.90, Albumin/Globulin Ratio 1.36, Amylase 42.6, Lipase 21.4 L 03/11/19 01:55: WBC 11.43 H, RBC 4.21, Hgb 11.8 L, Hct 36.1 L, MCV 85.7, MCH 28.0, MCHC 32.7, RDW Coeff of Wilfredo 12.6, Plt Count 162, Immature Gran % (Auto) 0.3, Neut % (Auto) 82.7, Lymph % (Auto) 8.3 L, [place] % (Auto) 7.1, Eos % (Auto) 1.3, Baso % (Auto) 0.3, Immature Gran # (Auto) 0.0, Neut # (Auto) 9.4 H, Lymph # (Auto) 1.0, [place] # (Auto) 0.8, Eos # (Auto) 0.2, Baso # (Auto) 0.0 03/11/19 01:30: Urine Color Light, Urine Clarity Slightly, Urine pH 5.5, Ur Specific [place] 1.010, Urine Protein Negative, Urine Glucose (UA) Negative, Urine Ketones Negative, Urine Blood Trace-intact, Urine Nitrite Positive, Urine Bilirubin Negative, Urine Urobilinogen 0.2, Ur Leukocyte Esterase Negative, Urine Microscopic WBC 2-5, Ur Squamous Epith Cells 2-5, Urine Bacteria 3+ ASSESSMENT: 1. Acute pyelonephritis. 2. Dehydration. 3. Uncontrolled diabetes mellitus type 2. 4. Pelvic mass increasing in size. The patient had previous refused further evaluation. PLAN: 1. Continue IV antibiotics and fluids. 2. CT abdomen and pelvis with contrast. Plan and coordination of the patient's care discussed in the presence of Track Repairer Helper and nurse. CONDITION: Stable SCRIBED BY: KATTY JOSEPH Metal Bed Assembler scribed while in presence of service performed by Dr. Mcarthur/Xochitl Peck APRN on 03/11/19 ([id number])
[2019-03-11] MEDS ORDERED: DECADRON 4 MG/ML SDV IM STA (12:51)
[2019-03-11] MEDS ORDERED: DILAUDID 1 MG/ML SYRINGE IVP STA (12:51)
--- NOTE | 2019-03-11 16:47 | CT ---
EXAM: CT ABDOMEN AND PELVIS HISTORY: Abdominal pain, vomiting, abnormal same day unenhanced CT TECHNIQUE: CT abdomen and pelvis with intravenous contrast. Images were reconstructed using 5 mm se ction thickness. Reformations were prepared. 75 mL Omnipaque. COMPARISON: 03/11/2019 and 09/17/2018 FINDINGS: No focal hepatic or splenic lesions. Gallbladder has been removed. Pancreas and adrenal glands are within normal limits. Ill-defined region of decreased enhancement of the anterior mid left renal cor rocky. Subtle left perinephric fat stranding. A few tiny renal cortical cysts are seen. There is a t iny left renal calculus measuring 2 mm. No hydronephrosis is identified. Mild atherosclerotic disea se. A few small nonspecific periaortic lymph nodes are present. Stomach is within normal limits. The patient gave a history of previous appendectomy. Bowel gas pat tern is nonobstructive. There is moderate distal colon diverticulosis. The uterus is present. Lobu lated enhancing soft tissue mass or masses seen in the right adnexa which do not appear noticeably ch anged in overall size since the comparison studies. Differential considerations would include atypic al exophytic uterine fibroids versus conceivably ovarian neoplasia among other possibilities. This g eneral region measures about 3.7 x 7.2 cm axial dimension and is best seen on axial image 77. Urinar y bladder is within normal limits. There is no ascites or inflammatory infiltration of the abdominal fat. There is a small fatty umbilical hernia with a sagittal neck of 1 cm. There is a small infraumbilica l ventral hernia with the sagittal neck of 1.6 cm. There is a small fatty supraumbilical hernia with a sagittal neck of 1.4 cm. These hernias are stable since the 2018 comparison study. The visualize d breasts demonstrate heterogeneous density distribution. Assure the patient is up-to-date on screen ing mammography. The bones reveal no acute abnormality. Lung bases reveal a few micro nodules anter iorly on the right which are grossly stable since the 2018 exam. No pneumoperitoneum. IMPRESSION: 1. The uterus is present. Lobulated enhancing soft tissue mass or masses seen in the right adnexa w hich do not appear noticeably changed in overall size since the comparison studies. Differential con siderations would include atypical exophytic uterine fibroids versus conceivably ovarian neoplasia am xenia other possibilities. MRI pelvis can be considered for additional imaging. 2. Ill-defined focus of decreased enhancement within the left renal cortex may represent an area of scarring or conceivably focal pyelonephritis. Correlate clinically. Tiny left renal calculus withou t hydronephrosis. 3. Tiny anterior right lung base nodules are grossly stable. 4. Stable small ventral hernias. 5. Diverticulosis of the colon without diverticulitis. 6. Atherosclerosis. 7. Heterogeneous density of the breasts as described in the last paragraph.
[2019-03-11] MEDS: DILAUDID 1 MG/ML SYRINGE IVP PRN (17:53)
[2019-03-11] MEDS ORDERED: XANAX PO SCH (21:00)
[2019-03-12] MEDS: NORCO 5-325 PO PRN ×2 (04:04→20:17)
[2019-03-12] MEDS: DILAUDID 1 MG/ML SYRINGE IVP PRN ×3 (05:33→22:09)
[2019-03-12] MEDS: HUMULIN R SUBCUT PRN ×4 (05:54→20:20)
--- NOTE | 2019-03-12 09:17 | PCM.PROG ---
Attending Provider: ATTENDING PROVIDER: Dr. YUMIKO MCARTHUR This patient is seen with Xochitl Peck, Nurse Practitioner. DATE OF SERVICE: 03/12/19 SUBJECTIVE: This 63 year old WHITE/ F was hospitalized 03/11/19. The patient is sitting on the side of the bed resting comfortably. No fever since 1 p.m. Pain has been more controlled. Both urine and blood cultures are positive for E. coli. REVIEW OF SYSTEMS: CONSTITUTIONAL: Positive for weakness. No night sweats. No fatigue, malaise, lethargy. No fever or chills. HEENT: Eyes: No visual changes. No eye pain. No eye discharge. ENT: No runny nose. No epistaxis. No sinus pain. No odynophagia. No congestion. RESPIRATORY: No cough, no congestion. No hemoptysis. No shortness of breath. CARDIOVASCULAR: No angina symptoms. No CHF symptoms. No atypical chest pain for CAD. No palpitations. No orthopnea.. GASTROINTESTINAL: No abdominal pain. No nausea or vomiting. No diarrhea or constipation. No hematemesis. No hematochezia. GENITOURINARY: No urgency. No frequency. No dysuria. No hematuria. No obstructive symptoms. No discharge. No pain. No significant abnormal bleeding. MUSCULOSKELETAL: Back pain. NEUROLOGICAL: Awake, alert, oriented to time, place and person. No headache. No neck pain. No syncope. No seizures. No dizziness. PSYCHIATRIC: Not anxious. No depression. No suicidal thoughts. No homicidal thoughts. SKIN: No rash. No lesions. No wounds. ENDOCRINE: No unexplained weight loss. No weight gain. HEMATOLOGIC/LYMPHATIC: No anemia. No purpura. No petechiae. No prolonged or excessive bleeding. No palpable lymph nodes. PHYSICAL EXAMINATION: GENERAL: The patient is awake, alert and oriented, sitting in bed in no distress. VITAL SIGNS: Temperature 97.8 F, Pulse 77, Respiratory Rate 18, BP 118/70, Pulse Ox 97% HEENT: Head normocephalic, atraumatic. Eyes: Extraocular muscles are intact. Pupils are equal, round and reactive to light and accommodation. Ears: No lesions. Nose appeared normal. Throat: No exudate or erythema. NECK: Supple. No JVD, no carotid bruit. No lymphadenopathy or thyromegaly. LUNGS: Diminished breath sounds. Clear to auscultation. Percussion note normal. Chest symmetrical. HEART: S1, S2, no S3. No murmurs. No cyanosis or clubbing. No ascites. Pulses: Dorsalis pedis and posterior tibial pulses +1 to +2 both sides. ABDOMEN: Soft. Non-tender. Bowel sounds active. No CVA tenderness. No mass felt. EXTREMITIES: No edema. Full range of motion of all extremities, equal. NEUROLOGIC: No focal deficit. Cranial nerves II through XII are grossly intact. No headache, no double vision or headache. SKIN: Not dry. Intact. Turgor-normal. LYMPHATIC: No palpable lymph nodes/no lymphedema. MUSCULOSKELETAL: Normal joints with no swelling. Muscle tone is normal. LAB REVIEW: 03/12/19 05:20 03/12/19 05:20 03/12/19 05:20: Sodium 135.2, Potassium 4.23, Chloride 101.0, Carbon Dioxide 27.6, Anion Gap 10.83, BUN 19.4 H, Creatinine 0.58 L, Estimated GFR (MDRD) 106.00, BUN/Creatinine Ratio 33.44, Glucose 322.4 H D, Calcium 9.03, Total Bilirubin 0.30, AST 30.6, ALT 23.5, Alkaline Phosphatase 54.5, Total Protein 6.16 L, Albumin 3.38 L, Globulin 2.78, Albumin/Globulin Ratio 1.21 03/12/19 05:20: WBC 8.35, RBC 3.79 L, Hgb 10.4 L, Hct 32.8 L, MCV 86.5, MCH 27.4 , MCHC 31.7 L, RDW Coeff of Wilfredo 12.8, Plt Count 143, Immature Gran % (Auto) 0.5 , Neut % (Auto) 72.8, Lymph % (Auto) 18.0, [place] % (Auto) 8.5, Eos % (Auto) 0.0, Baso % (Auto) 0.2, Immature Gran # (Auto) 0.0, Neut # (Auto) 6.1, Lymph # (Auto ) 1.5, [place] # (Auto) 0.7, Eos # (Auto) 0.0, Baso # (Auto) 0.0 03/11/19 14:20: Sodium 135.9, Potassium 4.06, Chloride 99.9, Carbon Dioxide 28.5 , Anion Gap 11.56, BUN 12.9, Creatinine 0.55 L, Estimated GFR (MDRD) 112.00, BUN /Creatinine Ratio 23.45, Glucose 194.3 H D, Calcium 8.62, Total Bilirubin 0.61, AST 28.4, ALT 21.3, Alkaline Phosphatase 59.0, Total Protein 6.60, Albumin 3.66 , Globulin 2.94, Albumin/Globulin Ratio 1.24 03/11/19 14:20: WBC 9.76, RBC 3.87 L, Hgb 10.9 L, Hct 33.3 L, MCV 86.0, MCH 28.2 , MCHC 32.7, RDW Coeff of Wilfredo 12.9, Plt Count 138 L, Immature Gran % (Auto) 0.5 , Neut % (Auto) 75.3, Lymph % (Auto) 13.6, [place] % (Auto) 10.0, Eos % (Auto) 0.4 , Baso % (Auto) 0.2, Immature Gran # (Auto) 0.1, Neut # (Auto) 7.3 H, Lymph # ( Auto) 1.3, [place] # (Auto) 1.0, Eos # (Auto) 0.0, Baso # (Auto) 0.0 ASSESSMENT: 1. Urosepsis, positive E. coli. 2. Acute pyelonephritis. 3. Dehydration. 4. Uncontrolled diabetes mellitus, type 2. 5. Pelvic mass increasing in size. The patient had previous refused further evaluation. PLAN: 1. IV fluids NS at 75 cc/hr. 2. Increase [place] one to two tabs t.i.d. p.r.n. 3. Increase Dilaudid q.4hr. Plan and coordination of the patient's care discussed in the presence of Department Store Manager and nurse. CONDITION: Stable SCRIBED BY: KATTY JOSEPH Chocolate Refining Roller scribed while in presence of service performed by Dr. Mcarthur/Xochitl Peck APRN on 03/12/19 ([id number])
[2019-03-12] MEDS: ZESTRIL PO SCH (09:27)
[2019-03-12] MEDS: SODIUM CHLORIDE 1,000 ML IV SCH ×2 (09:28→23:58)
[2019-03-12] MEDS: ROCEPHIN 1 GM in SODIUM CHLORIDE 50 ML IV SCH (09:28)
[2019-03-12] MEDS ORDERED: NORCO 5-325 PO STA (09:41)
[2019-03-12] MEDS ORDERED: ARTIFICIAL TEARS OPTH SOL OP PRN (09:41)
[2019-03-12] MEDS ORDERED: ZANTAC PO SCH ×2 (11:00→21:00)
[2019-03-12] MEDS: ZANTAC PO SCH ×2 (11:16→20:17)
[2019-03-12] MEDS: LEVAQUIN 500 MG in PREMIX 100 ML D5W 1 BAG IV SCH (11:16)
--- NOTE | 2019-03-12 11:49 | HP ---
DATE OF SERVICE: 03/11/19 HISTORY OF PRESENT ILLNESS: This 63-year-old white female who presented to the emergency room by ambulance complaining of intractable back pain and fever of 104 at home. PAST MEDICAL HISTORY: 1. Diabetes mellitus Type 2, uncontrolled. 2. Hypertension. 3. Anxiety. 4. Chronic back pain. 5. GERD. 6. Obesity. 7. Recurrent UTI. 8. Polyarthritis. PAST SURGICAL HISTORY: 1. Bilateral total knee replacement. REVIEW OF SYSTEMS: CONSTITUTIONAL: Positive for fever, chills, weakness. No night sweats. No fatigue, malaise, lethargy. HEENT: Eyes: No visual changes. No eye pain. No eye discharge. ENT: No runny nose. No epistaxis. No sinus pain. No sore throat. No odynophagia. No ear pain. No congestion. RESPIRATORY: No cough, no congestion. No hemoptysis. No shortness of breath. CARDIOVASCULAR: No angina symptoms. No CHF symptoms. No atypical chest pain for CAD. No palpitations. No PND. No orthopnea. GASTROINTESTINAL: Positive for abdominal pressure. No abdominal pain. No nausea or vomiting. No diarrhea or constipation. No hematemesis. No hematochezia. GENITOURINARY: No urgency. No frequency. No dysuria. No hematuria. No obstructive symptoms. No discharge. No pain. No significant abnormal bleeding. MUSCULOSKELETAL: Positive for back pain. NEUROLOGICAL: No headache. No neck pain. No syncope. No seizures. No dizziness. PSYCHIATRIC: Not anxious. No depression. No suicidal thoughts. No homicidal thoughts. SKIN: No rash. No lesions. No wounds. ENDOCRINE: No unexplained weight loss. No weight gain. HEMATOLOGIC/LYMPHATIC: No anemia. No purpura. No petechiae. No prolonged or excessive bleeding. No palpable lymph nodes. PERSONAL/FAMILY/SOCIAL HISTORY: She is a nonsmoker; ; no alcohol or ilicit drug use. MEDICATIONS: (HOME) Alprazolam 0.5 mg p.o. bedtime Hydrocodone/Acetaminophen one tab p.o. t.i.d. p.r.n. Lisinopril 20 mg p.o. daily Ranitidine 150 mg p.o. b.i.d. a.c. Promethazine 25 mg p.o. daily p.r.n. Metformin 500 mg p.o. b.i.d. ALLERGIES: MORPHINE, TRAMADOL PHYSICAL EXAMINATION: VITAL SIGNS: Temperature 104.1, heart rate 121, respirations 20, blood pressure 152/69, pulse ox 96% on room air. HEENT: Head normocephalic, atraumatic. Eyes: Extraocular muscles are intact. Pupils are equal, round and reactive to light and accommodation. Ears: No lesions. Nose appeared normal. Throat: No exudate or erythema. NECK: Supple. No JVD, no carotid bruit. No lymphadenopathy or thyromegaly. LUNGS: Diminished breath sounds bilaterally. Clear to auscultation. Percussion note normal. Chest symmetrical. HEART: S1, S2, no S3. No murmurs. No cyanosis or clubbing. No ascites. Pulses: Dorsalis pedis and posterior tibial pulses +1 to +2 bilaterally. ABDOMEN: Soft. Suprapubic tenderness. Bowel sounds active. Diffuse lower back tenderness. No specific flank tenderness. No mass felt. EXTREMITIES: No edema. Full range of motion of all extremities, equal. NEUROLOGIC: Alert, oriented times three. No focal deficit. Cranial nerves II through XII are grossly intact. No headache, no double vision or headache. SKIN: Not dry. Intact. Turgor - normal. LYMPHATIC: No palpable lymph nodes/no lymphedema. MUSCULOSKELETAL: Normal joints with no swelling. Muscle tone is normal. CT of the abdomen shows mass in the right pelvis 7.8 x 5 cm which has been present on previous exam. She has refused further evaluation of this mass in the past. Fecalstasis, nonobstructive bilateral nephrolithiasis, cholecystectomy. CT of the chest shows bibasilar atelectasis and/or pneumonitis. No pulmonary consolidation. White count 11.43, hemoglobin 11.8, hematocrit 36.1, platelets 162. Sodium 134, potassium 4.4, BUN 10.5, creatinine 0.54, platelets 339. AST 28, ALT 20, alkaline phosphatase 63, amylase 42, lipase 21. Urine pH 5.5, trace blood, positive nitrites, 3+ bacteria. ASSESSMENT: 1. ACUTE PYELONEPHRITIS. 2. DEHYDRATION. 3. ACUTE URINARY TRACT INFECTION. 4. DIABETES MELLITUS TYPE 2, UNCONTROLLED. 5. INTRACTABLE BACK PAIN, VOMITING. PLAN: 1. Admit to the Special Care Unit. 2. Routine telemetry orders. 3. CBC, CMP daily. 4. Start NS IV at 100 cc/hr. 5. Rocephin 1 gm IV daily. 6. Levaquin 500 mg IV daily. 7. Tylenol 500 mg two tablets q.4hr for fever greater than 100.4. 8. Phenergan IV 25 mg q.4 to 6hr for nausea. 9. Dilaudid 1 mg q.2 to 3hr p.r.n. for pain. 10. Continue home medications. 11. Urine for culture and sensitivity. 12. Blood culture times two. 13. Will follow closely. TIME SPENT: More than 70 minutes. MTDD
--- NOTE | 2019-03-12 11:54 | PN ---
DATE OF SERVICE: 03/11/19 SUBJECTIVE: The patient was seen and examined with the nurse practitioner. History and Physical done. The patient was admitted with acute urinary tract infection. Also , has diabetes which is out of control because of infection. The patient will be put on sliding scale, double antibiotics to use for kidney infection. CT scan of the abdomen is going to be repeated with contrast. TIME SPENT: More than 30 minutes. Plan and coordination of the patient's care discussed in the presence of nurse. EMMA
[2019-03-12] MEDS: XANAX PO PRN (20:16)
[2019-03-13] MEDS: NORCO 5-325 PO PRN ×3 (04:30→20:10)
[2019-03-13] MEDS: HUMULIN R SUBCUT PRN ×3 (06:10→20:10)
[2019-03-13] MEDS: ROCEPHIN 1 GM in SODIUM CHLORIDE 50 ML IV SCH (08:39)
[2019-03-13] MEDS: ZESTRIL PO SCH (08:39)
[2019-03-13] MEDS: LEVAQUIN 500 MG in PREMIX 100 ML D5W 1 BAG IV SCH (09:44)
--- NOTE | 2019-03-13 10:01 | PCM.PROG ---
Attending Provider: ATTENDING PROVIDER: Dr. YUMIKO MCARTHUR This patient is seen with Xochitl Peck, Nurse Practitioner. DATE OF SERVICE: 03/13/19 SUBJECTIVE: This 63 year old WHITE/ F was hospitalized 03/11/19. The patient is sitting in chair resting comfortably. She states she did not sleep last night. Kidney function improved. Hemoglobin down likely from hemodilution No fever. REVIEW OF SYSTEMS: CONSTITUTIONAL: No night sweats. No fatigue, malaise, lethargy. No fever or chills. HEENT: Eyes: No visual changes. No eye pain. No eye discharge. ENT: No runny nose. No epistaxis. No sinus pain. No odynophagia. No congestion. RESPIRATORY: No cough, no congestion. No hemoptysis. No shortness of breath. CARDIOVASCULAR: No angina symptoms. No CHF symptoms. No atypical chest pain for CAD. No palpitations. No orthopnea.. GASTROINTESTINAL: No abdominal pain. No nausea or vomiting. No diarrhea or constipation. No hematemesis. No hematochezia. GENITOURINARY: Positive for urinary frequency. No dysuria. No hematuria. No obstructive symptoms. No discharge. No pain. No significant abnormal bleeding. MUSCULOSKELETAL: Back pain. NEUROLOGICAL: Awake, alert, oriented to time, place and person. No headache. No neck pain. No syncope. No seizures. No dizziness. PSYCHIATRIC: Not anxious. No depression. No suicidal thoughts. No homicidal thoughts. SKIN: No rash. No lesions. No wounds. ENDOCRINE: No unexplained weight loss. No weight gain. HEMATOLOGIC/LYMPHATIC: No anemia. No purpura. No petechiae. No prolonged or excessive bleeding. No palpable lymph nodes. PHYSICAL EXAMINATION: GENERAL: The patient is awake, alert and oriented, lying/sitting in bed in no distress. VITAL SIGNS: Temperature 97.9 F, Pulse 70, Respiratory Rate 18, BP 108/65, Pulse Ox 96% HEENT: Head normocephalic, atraumatic. Eyes: Extraocular muscles are intact. Pupils are equal, round and reactive to light and accommodation. Ears: No lesions. Nose appeared normal. Throat: No exudate or erythema. NECK: Supple. No JVD, no carotid bruit. No lymphadenopathy or thyromegaly. LUNGS: Diminished breath sounds. Clear to auscultation. Percussion note normal. Chest symmetrical. HEART: S1, S2, no S3. No murmurs. No cyanosis or clubbing. No ascites. Pulses: Dorsalis pedis and posterior tibial pulses +1 to +2 both sides. ABDOMEN: Soft. Non-tender. Bowel sounds active. No CVA tenderness. No mass felt. EXTREMITIES: No edema. Full range of motion of all extremities, equal. NEUROLOGIC: No focal deficit. Cranial nerves II through XII are grossly intact. No headache, no double vision or headache. SKIN: Not dry. Intact. Turgor-normal. LYMPHATIC: No palpable lymph nodes/no lymphedema. MUSCULOSKELETAL: Normal joints with no swelling. Muscle tone is normal. LAB REVIEW: 03/13/19 05:00 03/13/19 05:00 03/13/19 05:00: Sodium 136.4, Potassium 3.77, Chloride 104.1, Carbon Dioxide 25.8, Anion Gap 10.27, BUN 16.9, Creatinine 0.49 L, Estimated GFR (MDRD) 128.00 , BUN/Creatinine Ratio 34.48, Glucose 270.2 H D, Calcium 8.58, Total Bilirubin 0.15 L, AST 23.2, ALT 19.5, Alkaline Phosphatase 48.1 L, Total Protein 5.63 L, Albumin 2.98 L, Globulin 2.65, Albumin/Globulin Ratio 1.12 03/13/19 05:00: WBC 7.99, RBC 3.48 L, Hgb 9.7 L, Hct 30.5 L, MCV 87.6, MCH 27.9 , MCHC 31.8, RDW Coeff of Wilfredo 12.9, Plt Count 133 L, Immature Gran % (Auto) 0.6 , Neut % (Auto) 50.8, Lymph % (Auto) 36.3, [place] % (Auto) 9.9, Eos % (Auto) 2.0, Baso % (Auto) 0.4, Immature Gran # (Auto) 0.1, Neut # (Auto) 4.1, Lymph # (Auto ) 2.9, [place] # (Auto) 0.8, Eos # (Auto) 0.2, Baso # (Auto) 0.0 ASSESSMENT: Please see below. 1. Urosepsis, positive Klebsiella. 2. Acute pyelonephritis. 3. Dehydration. 4. Uncontrolled diabetes mellitus, type 2. 5. Pelvic mass increasing in size. The patient had previous refused further evaluation. PLAN: 1. D/C IV fluids. 2. Continue IV antibiotics. 3. Anticipate discharge home tomorrow. Plan and coordination of the patient's care discussed in the presence of Bakery Demonstrator and nurse. CONDITION: Stable SCRIBED BY: KATTY JOSEPH Supervisor Cell Maintenance scribed while in presence of service performed by Dr. Mcarthur/Xochitl Peck APRN on 03/13/19 ([id number])
[2019-03-13] MEDS: ZANTAC PO SCH ×2 (10:33→20:09)
[2019-03-13] MEDS ORDERED: NORCO 10-325 PO ONE (14:00)
[2019-03-13] MEDS: GLUCOPHAGE PO SCH (17:04)
[2019-03-13] MEDS: XANAX PO PRN (20:12)
[2019-03-14] MEDS: NORCO 5-325 PO PRN (03:45)
[2019-03-14] MEDS: HUMULIN R SUBCUT PRN (06:00)
[2019-03-14 06:10] VITALS: BP 117/66; TEMP 98.2
[2019-03-14] MEDS ORDERED: LEVAQUIN 500 MG in PREMIX 100 ML D5W 1 BAG IV ONE (07:00)
[2019-03-14] MEDS ORDERED: ROCEPHIN 1 GM in SODIUM CHLORIDE 50 ML IV ONE (07:00)
[2019-03-14] MEDS: ZESTRIL PO SCH (08:08)
[2019-03-14] MEDS: GLUCOPHAGE PO SCH (08:09)
--- NOTE | 2019-03-14 09:50 | PCM.PROG ---
Attending Provider: ATTENDING PROVIDER: Dr. YUMIKO MCARTHUR This patient is seen with Xochitl Peck, Nurse Practitioner. DATE OF SERVICE: 03/14/19 SUBJECTIVE: This 63 year old WHITE/ F was hospitalized 03/11/19. The patient is afebrile. Back pain is improved. She is eating well. The patient is ready for discharge today. I discussed again pelvic mass and the patient is agreeable to gynecologic referral and case fitter is scheduling appointment for her. The patient previously had appointment that she did not go to. REVIEW OF SYSTEMS: CONSTITUTIONAL: No night sweats. No fatigue, malaise, lethargy. No fever or chills. HEENT: Eyes: No visual changes. No eye pain. No eye discharge. ENT: No runny nose. No epistaxis. No sinus pain. No odynophagia. No congestion. RESPIRATORY: No cough, no congestion. No hemoptysis. No shortness of breath. CARDIOVASCULAR: No angina symptoms. No CHF symptoms. No atypical chest pain for CAD. No palpitations. No orthopnea.. GASTROINTESTINAL: No abdominal pain. No nausea or vomiting. No diarrhea or constipation. No hematemesis. No hematochezia. GENITOURINARY: No urgency. No frequency. No dysuria. No hematuria. No obstructive symptoms. No discharge. No pain. No significant abnormal bleeding. MUSCULOSKELETAL: Back pain. NEUROLOGICAL: Awake, alert, oriented to time, place and person. No headache. No neck pain. No syncope. No seizures. No dizziness. PSYCHIATRIC: Not anxious. No depression. No suicidal thoughts. No homicidal thoughts. SKIN: No rash. No lesions. No wounds. ENDOCRINE: No unexplained weight loss. No weight gain. HEMATOLOGIC/LYMPHATIC: No anemia. No purpura. No petechiae. No prolonged or excessive bleeding. No palpable lymph nodes. PHYSICAL EXAMINATION: GENERAL: The patient is awake, alert and oriented, sitting in chair in no distress. VITAL SIGNS: Temperature 98.2 F, Pulse 75, Respiratory Rate 18, BP 117/66, Pulse Ox 98% HEENT: Head normocephalic, atraumatic. Eyes: Extraocular muscles are intact. Pupils are equal, round and reactive to light and accommodation. Ears: No lesions. Nose appeared normal. Throat: No exudate or erythema. NECK: Supple. No JVD, no carotid bruit. No lymphadenopathy or thyromegaly. LUNGS: Clear to auscultation. Percussion note normal. Chest symmetrical. HEART: S1, S2, no S3. No murmurs. No cyanosis or clubbing. No ascites. Pulses: Dorsalis pedis and posterior tibial pulses +1 to +2 both sides. ABDOMEN: Soft. Non-tender. Bowel sounds active. No CVA tenderness. No mass felt. EXTREMITIES: No edema. Full range of motion of all extremities, equal. NEUROLOGIC: No focal deficit. Cranial nerves II through XII are grossly intact. No headache, no double vision or headache. SKIN: Not dry. Intact. Turgor-normal. LYMPHATIC: No palpable lymph nodes/no lymphedema. MUSCULOSKELETAL: Normal joints with no swelling. Muscle tone is normal. LAB REVIEW: 03/14/19 04:40 03/14/19 04:40 03/14/19 04:40: Sodium 136.6, Potassium 3.61, Chloride 101.7, Carbon Dioxide 28.6, Anion Gap 9.91, BUN 10.2, Creatinine 0.53 L, Estimated GFR (MDRD) 117.00, BUN/Creatinine Ratio 19.24, Glucose 203.7 H D, Calcium 8.85, Total Bilirubin 0.42, AST 24.2, ALT 18.5, Alkaline Phosphatase 51.4 L, Total Protein 5.95 L, Albumin 3.14 L, Globulin 2.81, Albumin/Globulin Ratio 1.11 03/14/19 04:40: WBC 7.19, RBC 3.71 L, Hgb 10.3 L, Hct 32.1 L, MCV 86.5, MCH 27.8 , MCHC 32.1, RDW Coeff of Wilfredo 12.9, Plt Count 166, Immature Gran % (Auto) 0.4, Neut % (Auto) 47.4, Lymph % (Auto) 39.5, [place] % (Auto) 10.2 H, Eos % (Auto) 2.2 , Baso % (Auto) 0.3, Immature Gran # (Auto) 0.0, Neut # (Auto) 3.4, Lymph # ( Auto) 2.8, [place] # (Auto) 0.7, Eos # (Auto) 0.2, Baso # (Auto) 0.0 ASSESSMENT: 1. Urosepsis, positive Klebsiella. 2. Acute pyelonephritis. 3. Dehydration resolved 4. Uncontrolled diabetes mellitus, type 2. 5. Pelvic mass increasing in size. The patient had previously refused further evaluation. 6. Noncompliance with medication, lifestyle and diet. PLAN: 1. Discharge home. 2. Levaquin 500 mg daily times 7 days. 3. The patient is to be seen in office next week for followup. 4. Will make appointment with missile pad mechanic at [place]. Plan and coordination of the patient's care discussed in the presence of Planograph Operator and nurse. CONDITION: Stable SCRIBED BY: KATTY JOSEPH Timber Deadener scribed while in presence of service performed by Dr. Mcarthur/Xochitl Peck APRN on 03/14/19 ([id number])
--- NOTE | 2019-03-14 11:03 | CM.DICTOOL ---
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 LEFT KNEE ARTHROPLASTY, 2010 LAST VITALS Temp Pulse Resp BP Pulse Ox 98.2 F 75 18 117/66 98 03/14/19 06:00 03/14/19 06:00 03/14/19 06:00 03/14/19 06:00 03/14/19 06:00 TAKE THESE MEDICATIONS AT HOME Hydrocodone Bitart/Acetaminophen ([place] 5-325) 1 - 2 tab PO TID PRN PRN Reason: MODERATE PAIN Last Admin: 03/14/19 03:45 Dose: 2 tab Alprazolam (Xanax) 0.5 mg PO BEDTIME PRN PRN Reason: Anxiety Last Admin: 03/13/19 20:12 Dose: 0.5 mg Artificial Tears (Artificial Tears Opth Melania) 2 drop OP PRN PRN PRN Reason: Dry Eye Last Admin: 03/12/19 10:06 Dose: 2 drop Promethazine HCl 25 mg PO DAILY PRN PRN Reason: Nausea / Vomiting Last Admin: 03/11/19 12:41 Dose: 25MG IV Lisinopril (Zestril) 20 mg PO DAILY [facility] Last Admin: 03/14/19 08:08 Dose: 20 mg Metformin HCl (Glucophage) 500 mg PO BIDWM [facility] Last Admin: 03/14/19 08:09 Dose: 500 mg Ranitidine HCl (Zantac) 150 mg PO 1130,2100 [facility] Last Admin: 03/13/19 20:09 Dose: 150 mg ALLERGIES morphine Adverse Reaction (Verified 03/11/19 01:14) Vomiting tramadol HCl [From Ultram] Adverse Reaction (Verified 03/11/19 01:14) Nausea DISCONTINUED MEDICATIONS NONE NEW PRESCRIPTIONS: LEVAQUIN 500MG PO QDAY X7 DAYS SMOKING: NON SMOKER DISEASE SPECIFIC EDUCATION: UROSEPSIS DIABETES MELLITUS DIABETIC DIET HYPERTENSION PREVENTATIVE CARE AND FOLLOW-UP APPOINTMENTS ROUTINE SCREENINGS MEDICATIONS LAB REVIEW: 03/14/19 04:40 03/14/19 04:40 03/14/19 04:40: Sodium 136.6, Potassium 3.61, Chloride 101.7, Carbon Dioxide 28.6, Anion Gap 9.91, BUN 10.2, Creatinine 0.53 L, Estimated GFR (MDRD) 117.00, BUN/Creatinine Ratio 19.24, Glucose 203.7 H D, Calcium 8.85, Total Bilirubin 0.42, AST 24.2, ALT 18.5, Alkaline Phosphatase 51.4 L, Total Protein 5.95 L, Albumin 3.14 L, Globulin 2.81, Albumin/Globulin Ratio 1.11 03/14/19 04:40: WBC 7.19, RBC 3.71 L, Hgb 10.3 L, Hct 32.1 L, MCV 86.5, MCH 27.8 , MCHC 32.1, RDW Coeff of Wilfredo 12.9, Plt Count 166, Immature Gran % (Auto) 0.4, Neut % (Auto) 47.4, Lymph % (Auto) 39.5, [place] % (Auto) 10.2 H, Eos % (Auto) 2.2 , Baso % (Auto) 0.3, Immature Gran # (Auto) 0.0, Neut # (Auto) 3.4, Lymph # ( Auto) 2.8, [place] # (Auto) 0.7, Eos # (Auto) 0.2, Baso # (Auto) 0.0 PLAN: DISCHARGE HOME TODAY 03/14/2019 DIET: DIABETIC ADA 1800 ALIX ACTIVITY: UP TOLERATED FOLLOW-UP APPOINTMENTS: [facility] [place], [place] SUNDAY MARCH 17, 2019 @ 3:00PM DR. MCARTHUR THURSDAY MARCH 21, 2019 @ 11:45AM CODE STATUS: FULL CODE MRS. VILLATORO IS ALERT AND ORIENTED X3, SHE IS AGREEABLE WITH DISCHARGE PLAN TODAY. SHE IS AGREEABLE TO FOLLOW-UP WITH [facility] IN [place] REGARDING HER PELVIC MASS. APPOINTMENT SCHEDULED PRIOR TO DISCHARGE , SHE PREVIOUSLY HAD AN APPOINTMENT AND DID NOT ATTEND, I COUNSELLED HER ON THE IMPORTANCE OF FOLLOW-UP VISITS. SHE IS INDEPENDENT WITH ACTIVITIES OF DAILY LIVING. HER APPETITE IS GOOD, I FURTHER COUNSELLED HER ON COMPLIANCE WITH A DIABETIC DIET. SHE IS AFEBRILE, REPORTING HER PAIN HAS IMPROVED AND HAS RETURNED TO HER NORMAL LEVEL OF CHRONIC LOW BACK AND LEG PAIN. HYDRATION STATUS IS GOOD, SKIN IS INTACT. I PLAN TO SEE HER BACK IN OUR OFFICE IN ONE WEEK. MD MADAI BRIGHT, FELECIA
--- NOTE | 2019-03-14 13:54 | DS ---
DATE OF SERVICE: 03/14/19 FINAL DIAGNOSIS: 1.UROSEPSIS, POSITIVE KLEBSIELLA 2.PYELONEPHRITIS, BILATERAL 3.LOW BACK PAIN, CHRONIC 4.GERD 5.PELVIC MASS 6.FIBROID 7.OSTEOARTHRITIS-KNEES 8.UNCONTROLLED DIABETES MELLITUS, TYPE 2 9.BREAST CANCER-REMISSION 10.OBESITY (34.5) 11.ANXIETY 12.DEPRESSION 13.NON-COMPLIANCE WITH MEDICATIONS, LIFESTYLE, DIET, FOLLOW-UPS 14.APPENDECTOMY 15.CHOLECYSTECTOMY 16.LYMPH NODES REMOVED, RIGHT 17.RIGHT BREAST LUMPECTOMY-MALIGNANT, 06/23 18.LEFT KNEE ARTHROPLASTY, 2010 LAST VITALS: Temp Pulse Resp BP Pulse Ox 98.2 F 75 18 117/66 98 03/14/19 06:00 03/14/19 06:00 03/14/19 06:00 03/14/19 06:00 03/14/19 06:00 DISCHARGE INSTRUCTIONS: DISCHARGE HOME TODAY 03/14/2019. CODE STATUS: FULL CODE FOLLOW-UP APPOINTMENTS: [facility] [place], [place] SUNDAY MARCH 17, 2019 @ 3:00PM DR. MCARTHUR THURSDAY MARCH 21, 2019 @ 11:45AM TAKE THESE MEDICATIONS AT HOME: Hydrocodone Bitart/Acetaminophen ([place] 5-325) 1 - 2 tab PO TID PRN Alprazolam (Xanax) 0.5 mg PO BEDTIME PRN Artificial Tears (Artificial Tears Opth Melania) 2 drop OP PRN PRN Promethazine HCl 25 mg PO DAILY PRN Lisinopril (Zestril) 20 mg PO DAILY [facility] Metformin HCl (Glucophage) 500 mg PO BIDWM [facility] Ranitidine HCl (Zantac) 150 mg PO 1130,2100 [facility] ALLERGIES: morphine Adverse Reaction (Verified 03/11/19 01:14) tramadol HCl [From Ultram] Adverse Reaction (Verified 03/11/19 01:14) DISCONTINUED MEDICATIONS: NONE NEW PRESCRIPTIONS: LEVAQUIN 500MG PO Q DAY X7 DAYS SMOKING: NON SMOKER DISEASE SPECIFIC EDUCATION: UROSEPSIS DIABETES MELLITUS DIABETIC DIET HYPERTENSION PREVENTATIVE CARE AND FOLLOW-UP APPOINTMENTS ROUTINE SCREENINGS MEDICATIONS DIET: DIABETIC ADA 1800 ALIX ACTIVITY: UP TOLERATED HOSPITAL COURSE: This is a 63 year old white female who presented to the emergency room by ambulance. She started experiencing intractable back pain and fever of 105 at home. She was brought in. She was tachycardiac, hypotensive. Urine showed 3+ bacteria. She was started on IV fluids 125cc an hour normal saline. CT of the abdomen without contrast initially was fairly normal with exception of a pelvic mass which she has had for a number of years and has refused followup. We admitted her to the special care unit and started her on Rocephin 1 gram IV daily along with Levaquin 500mg IV daily. Urine was sent for culture and sensitivity which was positive for Klebsiella and sensitive to both Rocephin and Levaquin. She had fever for approximately 36 hours and then the fever subsided. She was still having back pain. The second CT scan with contrast showed that she had a lobulated area in her kidney with acute pyelonephritis. With IV fluids and IV antibiotics her fever subsided and she no longer had any vomiting after about 36 hours. Blood pressure improved. We did after 48 hours decreased her fluids to 75cc an hour. She is uncontrolled diabetic and was put on sliding scale for insulin. Hgb did drop after the third day likely due to hemodilution. I did discuss with her the CT showed possible increase in size of the mass and warranted further followup. She is agreeable. We have made her an appointment with [facility] which will be on March 17 at 3:00 here in [place]. She is agreeable to this appointment. She had previously had an appointment in the past and did not go. She is somewhat noncompliant with medications, lifestyle and diet. Again she is an uncontrolled diabetic. Accordance with the urine culture we will send her home with Levaquin 500mg PO daily for the next 7 days. Blood pressure has improved at 117/66. Initially she did have intractable back pain due the pyelonephritis along with Vomiting. She did receive [place] and Dilaudid which helped control her pain. She has not had any Dilaudid for the past 18 hours or so and pain has been her usual baseline of chronic back pain. We will discharge her today in stable condition. I further instructed her to continue with increased rest and increased fluids. If she begins with fever or nausea or vomiting she is instructed to go to the emergency room. Again she refuses to stay any longer. However I do believe she is stable for discharge. Today on day of discharge WBC 7.1, hgb 10.3, hct 32.1 , plt count 166, sodium 136, potassium 3.6, BUN 10, creatinine 0.53. TIME SPENT: More than 60 minutes. MTDD
== END 2019-03-14 11:17 | disposition home or self-care (01) | DRG 690 ==
LOC: ED 01:03 → SCU 04:22
PROVIDERS: ADMIT Internal Medicine; ATTEND Internal Medicine
DX: N10 Acute pyelonephritis (principal); B96.1 Klebsiella pneumoniae [K. pneumoniae] as the cause of diseases classified elsewhere; K21.9 Gastro-esophageal reflux disease without esophagitis; D21.9 Benign neoplasm of connective and other soft tissue, unspecified; M17.0 Bilateral primary osteoarthritis of knee; E11.9 Type 2 diabetes mellitus without complications; E66.9 Obesity, unspecified; F41.9 Anxiety disorder, unspecified; F32.9 Major depressive disorder, single episode, unspecified; I10 Essential (primary) hypertension; E86.0 Dehydration; R50.9 Fever, unspecified; R10.9 Unspecified abdominal pain; R53.1 Weakness; R19.00 Intra-abdominal and pelvic swelling, mass and lump, unspecified site; Z68.34 Body mass index [BMI] 34.0-34.9, adult; Z91.19 Patient's noncompliance with other medical treatment and regimen
CPT/HCPCS: 36415; 74176; 80053; 81001; 82150; 82962; 83605; 83690; 84145; 85025; 87040; 87086; 87186; 93005; 93010; 96361; 96365; 97802; 99285

== ENCOUNTER 2022-04-25 07:56 | Inpatient (IN) ==
[2022-04-25] MEDS ORDERED: SODIUM CHLORIDE 1,000 ML IV STA (08:28)
[2022-04-25] MEDS ORDERED: ZOFRAN 4 MG/2 ML IVP ONE ×2 (08:28→09:41)
--- NOTE | 2022-04-25 08:33 | ED.PDOC ---
General ED Provider: Dr. CRISTEL LEACH MD Chief Complaint: Nausea/Vomiting Stated Complaint: mild to mod off and on NV for one month, worse in the last day, unable to eat, hx dm htn GB and appy surgery, no covid vaccine, no hx mi, no injury, no fever, +fatigue, pt states she is not allergic to dilaudid Time Seen by Provider: 04/25/22 08:00 Mode of Arrival: Walk-In Information Source: Patient Primary Care Provider: YUMIKO MCARTHUR Nursing and Triage Documentation Reviewed and Agree: Yes Does patient meet sepsis criteria?: No System Inflammatory Response Syndrome: Not Applicable Sepsis Protocol: For patient's 13 years and over: Temp is 96.8 and below OR 101 and greater Pulse >90 BPM Resp >20/minute Acutely Altered Mental Status Are patient's symptoms suggestive of a new infection, such as: -Pneumonia -Skin, Soft Tissue -Endocarditis -UTI -Bone, Joint Infection -Implantable Device -Acute Abdominal Infection -Wound Infection -Meningitis -Blood Stream Catheter Infection -Unknown Review of Systems Review Of Systems Constitutional: Reports Malaise; Denies Fever Eyes: Denies Vision change Ears, Nose, Mouth, Throat: Denies Throat pain Respiratory: Denies Short of air Cardiac: Denies Chest pain GI: Reports Abdominal pain, Nausea and Vomiting : Denies Frequency Musculoskeletal: Denies Neck pain Skin: Denies Cyanosis Neurological: Denies Cognitive dysfunction All Other Systems: Other [facility] Social History Smoking and tobacco status: Never smoker History of recent travel: No Female Reproductive History Menstrual Hx Hysterectomy: No Hx Tubal Ligation: No Physical Exam Physical Exam Appearance: Reports No pain distress Ill-appearing: Mild Pain Distress: None Eyes: Reports CHARLES, EOMI and Conjunctiva clear ENT: Reports Nose normal and Oropharynx normal Neck: Supple Respiratory: Reports Airway patent, Breath sounds clear and Breath sounds equal Cardiovascular: Reports RRR GI/: Reports Soft and Nontender Musculoskeletal: Reports ROM intact and No edema Skin: Reports Normal color Neurological: Reports Alert and Oriented Psychiatric: Reports Affect appropriate Interpretation Radiology Interpretation Radiology Interpretation By: Radiologist Exam Interpreted: CT Scan Xray Comments: right breast mass and liver mets, no free air Radiology Interpretation By: Radiologist Exam Interpreted: CXR Xray Comments: left atelectasis EKG Interpretation Time of EKG #1: 11:29 Rate: Normal Rhythm: Sinus Interpretation: no stemi Critical Care Note Critical Care Note Total Critical Care Time (mins): 0 Course Course Hematology/Chemistry: 04/25/22 08:39 04/25/22 08:39 Orders, Labs, Meds: Lab Review 04/25/22 04/25/22 04/25/22 08:39 08:39 08:39 WBC 8.40 RBC 4.36 Hgb 10.6 L Hct 33.8 L MCV 77.5 L MCH 24.3 L MCHC 31.4 L RDW Coeff of Wilfredo 13.6 Plt Count 215 Immature Gran % (Auto) 0.2 Neut % (Auto) 74.1 Lymph % (Auto) 19.8 [place] % (Auto) 4.3 Eos % (Auto) 1.0 Baso % (Auto) 0.6 Neut # (Auto) 6.2 Lymph # (Auto) 1.7 [place] # (Auto) 0.4 Eos # (Auto) 0.1 Baso # (Auto) 0.1 Immature Gran # (Auto) 0.0 Sodium 137.5 Potassium 3.89 Chloride 99.8 Carbon Dioxide 28.1 Anion Gap 13.49 BUN 11.5 Creatinine 0.62 Estimated GFR (MDRD) 97.00 BUN/Creatinine Ratio 18.54 Glucose 285.4 H Lactic Acid 0.82 Calcium 9.22 Total Bilirubin 0.37 AST 23.0 ALT 14.6 Alkaline Phosphatase 87.5 Troponin I < 0.012 Total Protein 7.83 Albumin 3.89 Globulin 3.94 Albumin/Globulin Ratio 0.98 Lipase 18.2 L Urine Color Urine Clarity Urine pH Ur Specific [place] Urine Protein Urine Glucose (UA) Urine Ketones Urine Blood Urine Nitrite Urine Bilirubin Urine Urobilinogen Ur Leukocyte Esterase Urine Microscopic RBC Ur Squamous Epith Cells Urine Bacteria Urine Mucus Plasma/Serum Alcohol < 10.0 Influ A Molecular Assay Influ B Molecular Assay SARS CoV-2 RNA Rapid DANTE 04/25/22 04/25/22 04/25/22 08:50 08:50 10:52 WBC RBC Hgb Hct MCV MCH MCHC RDW Coeff of Wilfredo Plt Count Immature Gran % (Auto) Neut % (Auto) Lymph % (Auto) [place] % (Auto) Eos % (Auto) Baso % (Auto) Neut # (Auto) Lymph # (Auto) [place] # (Auto) Eos # (Auto) Baso # (Auto) Immature Gran # (Auto) Sodium Potassium Chloride Carbon Dioxide Anion Gap BUN Creatinine Estimated GFR (MDRD) BUN/Creatinine Ratio Glucose Lactic Acid Calcium Total Bilirubin AST ALT Alkaline Phosphatase Troponin I Total Protein Albumin Globulin Albumin/Globulin Ratio Lipase Urine Color Yellow Urine Clarity Clear Urine pH 6.0 Ur Specific [place] 1.025 Urine Protein 1+ H Urine Glucose (UA) 2+ H Urine Ketones 1+ H Urine Blood 2+ H Urine Nitrite Negative Urine Bilirubin Negative Urine Urobilinogen 0.2 Ur Leukocyte Esterase Negative Urine Microscopic RBC 20-30 Ur Squamous Epith Cells 50-100 Urine Bacteria Trace Urine Mucus 2+ Plasma/Serum Alcohol Influ A Molecular Assay Negative by naat Influ B Molecular Assay Negative by naat SARS CoV-2 RNA Rapid DANTE Negative Orders Category Date Time Status ABG DRAW REQUEST Stat CARDIO 04/25/22 11:26 Ordered EKG-(ED ONLY) Stat CARDIO 04/25/22 08:28 Completed ABG COOX Stat LAB 04/25/22 11:26 Ordered BLOOD ALCOHOL Stat LAB 04/25/22 08:39 Completed CBC W/ AUTO DIFF Stat LAB 04/25/22 08:39 Completed CMP [COMPREHENSIVE METABOLIC PANEL] Stat LAB 04/25/22 08:39 Completed LACTIC ACID Stat LAB 04/25/22 08:39 Completed LIPASE Stat LAB 04/25/22 08:39 Completed MOLECULAR FLU A & B [FLU A/B MOLECULAR] Stat LAB 04/25/22 08:50 Completed SARS COV-2 RNA RAPID DANTE Stat LAB 04/25/22 08:50 Completed TROPONIN I Stat LAB 04/25/22 08:39 Completed URINALYSIS C & S IF INDICATED Stat LAB 04/25/22 10:52 Completed Hydromorphone HCl [Dilaudid 1 mg/ml Syringe] MEDS 04/25/22 09:16 Discontinued 1 mg IVP ONCE ONE Ketorolac Tromethamine [Toradol] MEDS 04/25/22 08:49 Discontinued 30 mg IVP ONCE STA Mag-Al Plus//Lidocaine [Gi Cocktail] MEDS 04/25/22 10:46 Discontinued 30 ml PO ONCE ONE Ondansetron HCl/Pf [Zofran 4 mg/2 ml] MEDS 04/25/22 08:28 Discontinued 4 mg IVP ONCE ONE Ondansetron HCl/Pf [Zofran 4 mg/2 ml] MEDS 04/25/22 09:41 Discontinued 4 mg IVP ONCE ONE Sodium Chloride 0.9% [Sodium Chloride] 1,000 ml MEDS 04/25/22 08:28 Discontinued IV BOLUS CHEST, 1V AP ONLY Stat RADS 04/25/22 08:[address] ABDOMEN/PELVIS WO CONTRAST Stat RADS 04/25/22 08:28 Completed Medications Discontinued Medications Generic Name Dose Route Start Last Admin Trade Name Freq PRN Reason Stop Dose Admin Al Hydroxide/Mg Hydroxide 30 ml 04/25/22 10:46 04/25/22 11:03 Mag-Al Plus//Lidocaine 30 Ml Btl PO 04/25/22 10:47 Not Given ONCE ONE Hydromorphone HCl 1 mg 04/25/22 09:16 04/25/22 09:27 Hydromorphone Hcl 1 Mg/Ml Syringe IVP 04/25/22 09:17 1 mg ONCE ONE Administration Sodium Chloride 1,000 mls @ 1,000 mls/hr 04/25/22 08:28 04/25/22 11:28 Sodium Chloride IV 04/25/22 09:27 1,000 mls/hr BOLUS STA Administration Ketorolac Tromethamine 30 mg 04/25/22 08:49 04/25/22 09:02 Ketorolac Tromethamine 30 Mg/Ml Vial IVP 04/25/22 08:50 Not Given ONCE STA Ondansetron HCl 4 mg 04/25/22 08:28 04/25/22 09:00 Ondansetron Hcl/Pf 4 Mg/2 Ml Sdv IVP 04/25/22 08:29 4 mg ONCE ONE Administration Ondansetron HCl 4 mg 04/25/22 09:41 04/25/22 09:49 Ondansetron Hcl/Pf 4 Mg/2 Ml Sdv IVP 04/25/22 09:42 4 mg ONCE ONE Administration Vital Signs: Temp Pulse Resp BP Pulse Ox 04/25/22 08:05 98.0 F 102 H 20 175/92 H 98 Discharge Plan Discharge Patient Disposition: ADMITTED INPATIENT Discharge Problem: Vomiting, Breast mass, right, Acute hyperglycemia Prescriptions: No Action Metformin Hcl 500 MG Tablet 500 mg PO BID 0RF pantoprazole [Protonix] 20 mg Tablet,Delayed Release (Dr/Ec) 20 mg PO DAILY 0RF tizanidine 2 mg tablet 2 mg PO PRN PRN (Reason: Muscle Spasm) 0RF Label Comments: TAKE 1 TABLET BY MOUTH TWICE DAILY NEEDED hydrocodone-acetaminophen 5-325 mg tablet 1 tab PO TID PRN (Reason: Pain) 0RF Label Comments: TAKE 1 TABLET BY MOUTH THREE TIMES DAILY NEEDED FOR PAIN alprazolam 0.25 mg tablet 0.25 mg PO PRN PRN (Reason: Anxiety) 0RF gabapentin 300 mg Tablet 300 mg PO BEDTIME 0RF gabapentin 300 mg Capsule 300 mg PO BEDTIME 0RF ondansetron HCl 4 mg tablet 4 mg PO PRN PRN (Reason: Nausea) 0RF lisinopril 40 mg Tablet 40 mg PO DAILY 0RF Did you review [place] [employer] ENGINE OPERATOR GENERATORS?: Not Applicable ED Provider: CRISTEL LEACH Condition: Stable Physician Progress Note: []d/w Dr Mcarthur admission and treatment for hyperglycemia and unable to eat due to vomiting, probable liver mets
[2022-04-25 08:44] LABS: BASOPHILS # (AUTO) 0.1 K/uL (0-0.2); BASOPHILS % (AUTO) 0.6 % (0.0-3.0); EOSINOPHILS # (AUTO) 0.1 K/ul (0.0-0.7); HEMATOCRIT 33.8 % (37.0-47.0); HEMOGLOBIN 10.6 g/dl (12.0-16.0); IMMATURE GRANULOCYTE % (AUTO) 0.2 % (0.0-5.0); LYMPHOCYTES # (AUTO) 1.7 K/uL (0.60-3.4); LYMPHOCYTES % (AUTO) 19.8 (10.0-50.0); MEAN CORPUSCULAR HEMOGLOBIN 24.3 pg (27.0-31.0); MEAN CORPUSCULAR HGB CONC 31.4 (31.8-35.4); MEAN CORPUSCULAR VOLUME 77.5 fl (81.0-99.0); MONOCYTES # (AUTO) 0.4 K/uL (0.4-2.0); MONOCYTES % (AUTO) 4.3 (0-10); NEUTROPHILS # (AUTO) 6.2 K/ul (2.0-6.9); NEUTROPHILS % (AUTO) 74.1 % (42.2-75.2); PLATELET COUNT 215 10^3/uL (140-440); RDW COEFFICIENT OF VARIATION 13.6 % (11.6-14.8); RED BLOOD COUNT 4.36 10^6/ul (4.20-5.40)
[2022-04-25] MEDS ORDERED: TORADOL IVP STA (08:49)
[2022-04-25 09:02] LABS: ALANINE AMINOTRANSFERASE 14.6 U/L (0-35); ALBUMIN 3.89 g/dL (3.5-5.0); ALKALINE PHOSPHATASE 87.5 U/L (53-141); BILIRUBIN,TOTAL 0.37 mg/dL (0.2-1.3); BLOOD UREA NITROGEN 11.5 mg/dL (7-17); CALCIUM 9.22 mg/dL (8.4-10.2); CARBON DIOXIDE 28.1 mmol/L (22-30.0); CHLORIDE 99.8 mmol/L (98-107); CREATININE 0.62 mg/dL (0.60-1.30); GLUCOSE 285.4 mg/dL (74-106); LIPASE 18.2 U/L (23-300); POTASSIUM 3.89 mmol/L (3.5-5.1); SODIUM 137.5 mmol/L (134.5-145); TOTAL PROTEIN 7.83 g/dL (6.3-8.2)
[2022-04-25 09:04] LABS: BLOOD ALCOHOL < 10.0 mg/dL (0.0-50.0)
[2022-04-25 09:12] LABS: MOLECULAR FLU A NEGATIVE BY NAAT (NEGATIVE); MOLECULAR FLU B NEGATIVE BY NAAT (NEGATIVE)
[2022-04-25 09:14] LABS: TROPONIN I < 0.012 ng/ml (0.0000-0.120)
[2022-04-25] MEDS ORDERED: DILAUDID 1 MG/ML SYRINGE IVP ONE ×2 (09:16→12:28)
--- NOTE | 2022-04-25 10:40 | DI ---
EXAM: Chest one view HISTORY: Vomiting COMPARISON: 04/10/2017 TECHNIQUE: Single view of the chest was performed FINDINGS: Bibasilar atelectasis. Mild opacity left mid lung may represent atelectasis is less likel y infiltrate. There is no pleural effusion or pneumothorax. The heart is top normal in size. The m ediastinal contour is normal. There are no acute abnormalities of the bones. Mild opacity left mid lung may represent atelectasis versus less likely infiltrate. Recommend short -term radiographic follow-up. Bibasilar atelectasis.
[2022-04-25] MEDS ORDERED: GI COCKTAIL PO ONE (10:46)
--- NOTE | 2022-04-25 10:54 | CT ---
EXAM: CT abdomen pelvis without contrast HISTORY: Vomiting COMPARISON: 08/10/2021 TECHNIQUE: CT abdomen pelvis performed without intravenous contrast. Coronal and sagittal reformatt ed images obtained. FINDINGS: 4.3 cm right breast mass is incompletely imaged with right breast skin thickening. Bibasi lar atelectasis. No free air. No acute abnormalities of the bones. Degenerative change in the spin e. Heart top normal in size. Evaluation organ parenchyma limited without contrast. Multiple low-de nsity liver lesions that are poorly visualized without contrast and measure up to 1.6 cm on image 18. Patient status post cholecystectomy. Pancreas unremarkable. Spleen unremarkable. Adrenals unrema rkable. 1.5 cm left renal cyst. Small left renal calculus. Small bilateral renal calculi. No hydr onephrosis. No calculi visualized in normal course of the ureters. Bladder only mildly distended an d poorly very, grossly unremarkable. Uterus unremarkable. There is a 7.5 x 3.9 cm right adnexal mas s that is grossly unchanged. Aorta normal in caliber. Atherosclerosis that is greatest distally. N o lymphadenopathy or ascites. Stomach unremarkable. No dilated loops small bowel. Mild nonspecific mesenteric edema in the left abdomen. Appendix not visualized. Colonic diverticulosis. There are ventral hernias containing fat and two knuckles of transverse colon. No evidence for obstruction. P ostsurgical changes in the abdominal wall. IMPRESSION: 1. Unexpected finding: Right breast mass and right breast skin thickening, highly suspicious for ma lignancy. Recommend diagnostic mammogram and ultrasound. 2. Unexpected finding multiple low density liver lesions, suspicious for metastasis, poorly visualiz ed. 3. Mild nonspecific edema in the left abdomen. 4. Ventral hernias containing fat and two knuckles of transverse colon. No evidence for obstruction . 5. Stable right adnexal mass. 6. Colonic diverticulosis All CT scans are performed using dose optimization techniques as appropriate to the performed exam an d include at least one of the following: Automated exposure control, adjustment of the mA and/or kV according t o size, and the use of iterative reconstruction technique.
[2022-04-25 11:05] LABS: BILIRUBIN,URINE Negative (NEGATIVE); CLARITY,URINE Clear (CLEAR); COLOR,URINE Yellow (YELLOW); GLUCOSE, URINE (UA) 2+ (NEGATIVE); KETONES,URINE 1+ (NEGATIVE); LEUKOCYTE ESTERASE ,URINE Negative (NEGATIVE); NITRITE,URINE Negative (NEGATIVE); PROTEIN,URINE 1+ (NEGATIVE); URINE, BLOOD 2+ (NEGATIVE); UROBILINOGEN,URINE 0.2 (0.2)
[2022-04-25 11:13] LABS: BACTERIA,URINE TRACE (NOT PRESENT); MUCUS,URINE 2+ (NOT PRESENT); SQUAMOUS EPITHELIAL CELL,UR 50-100 (0-5); URINE RBC, MICROSCOPIC 20-30 (0-2)
[2022-04-25] MEDS ORDERED: HUMULIN R SUBCUT PRN (11:33)
[2022-04-25] MEDS ORDERED: TYLENOL PO PRN (11:33)
[2022-04-25] MEDS ORDERED: ZOFRAN TAB PO PRN ×2 (11:38→12:38)
[2022-04-25] MEDS ORDERED: NORCO 5-325 PO PRN (11:38)
[2022-04-25] MEDS ORDERED: ZANAFLEX PO PRN ×2 (11:38→12:38)
[2022-04-25] MEDS ORDERED: XANAX PO PRN (11:38)
[2022-04-25 12:42] LABS: ABG O2 HGB 94.4 % (95-100); ABG PH 7.41 (7.35-7.45); BEecf 3.9 (-2.0-3.0); COHb 1.8 (0.5-1.5); HCO3 28.5 (21-28); MetHb 0.8 (0-1.5); TCO2 29.9 (19-24); sO2 95.4 % (94-98); tHb 10.2 g/dl (11.7-17.4)
[2022-04-25 12:47] VITALS: BMI 32.4
[2022-04-25] MEDS: SODIUM CHLORIDE 1,000 ML IV SCH (12:56)
[2022-04-25] MEDS ORDERED: PHENERGAN 25 MG/ML VIAL 12.5 MG in SODIUM CHLORIDE 50 ML IV PRN (15:21)
[2022-04-25] MEDS: ZOFRAN 4 MG/2 ML IVP PRN (15:32)
[2022-04-25] MEDS: ROCEPHIN 1 GM/50 ML D5W 1 GM/50 ML BAG IV SCH (17:33)
[2022-04-25] MEDS: DILAUDID 1 MG/ML SYRINGE IVP PRN ×2 (17:42→22:01)
[2022-04-25] MEDS: NEURONTIN PO SCH (20:15)
[2022-04-25] MEDS: XANAX PO PRN (20:41)
[2022-04-25] MEDS ORDERED: PROTONIX IV IVP SCH (21:00)
[2022-04-26 01:48] LABS: BASOPHILS # (AUTO) 0.1 K/uL (0-0.2); BASOPHILS % (AUTO) 0.6 % (0.0-3.0); EOSINOPHILS # (AUTO) 0.2 K/ul (0.0-0.7); EOSINOPHILS % (AUTO) 2.8 % (0.0-7.0); HEMATOCRIT 30.8 % (37.0-47.0); HEMOGLOBIN 9.6 g/dl (12.0-16.0); IMMATURE GRANULOCYTE % (AUTO) 0.4 % (0.0-5.0); LYMPHOCYTES % (AUTO) 36.5 (10.0-50.0); MEAN CORPUSCULAR HEMOGLOBIN 24.7 pg (27.0-31.0); MEAN CORPUSCULAR HGB CONC 31.2 (31.8-35.4); MEAN CORPUSCULAR VOLUME 79.2 fl (81.0-99.0); MONOCYTES # (AUTO) 0.7 K/uL (0.4-2.0); MONOCYTES % (AUTO) 8.1 (0-10); NEUTROPHILS # (AUTO) 4.3 K/ul (2.0-6.9); NEUTROPHILS % (AUTO) 51.6 % (42.2-75.2); PLATELET COUNT 208 10^3/uL (140-440); RDW COEFFICIENT OF VARIATION 13.8 % (11.6-14.8); RED BLOOD COUNT 3.89 10^6/ul (4.20-5.40); WHITE BLOOD COUNT 8.31 K/ul (4.6-10.2)
[2022-04-26] MEDS: SODIUM CHLORIDE 1,000 ML IV SCH ×2 (01:51→17:45)
[2022-04-26] MEDS: DILAUDID 1 MG/ML SYRINGE IVP PRN ×6 (01:52→21:49)
[2022-04-26 02:00] LABS: ALANINE AMINOTRANSFERASE 12.1 U/L (0-35); ALBUMIN 3.24 g/dL (3.5-5.0); ALKALINE PHOSPHATASE 67.8 U/L (53-141); BILIRUBIN,TOTAL 0.25 mg/dL (0.2-1.3); BLOOD UREA NITROGEN 8.7 mg/dL (7-17); CALCIUM 8.16 mg/dL (8.4-10.2); CARBON DIOXIDE 24.8 mmol/L (22-30.0); CHLORIDE 106.5 mmol/L (98-107); CREATININE 0.62 mg/dL (0.60-1.30); POTASSIUM 3.19 mmol/L (3.5-5.1); SODIUM 138.7 mmol/L (134.5-145); TOTAL PROTEIN 6.73 g/dL (6.3-8.2)
[2022-04-26] MEDS ORDERED: PRILOSEC PO SCH (06:30)
[2022-04-26] MEDS: PROTONIX IV IVP SCH ×2 (09:07→20:13)
[2022-04-26] MEDS: ROCEPHIN 1 GM/50 ML D5W 1 GM/50 ML BAG IV SCH (09:15)
[2022-04-26] MEDS: ZOFRAN 4 MG/2 ML IVP PRN (09:16)
[2022-04-26] MEDS: ZESTRIL PO SCH (11:26)
[2022-04-26] MEDS: XANAX PO PRN (12:21)
--- NOTE | 2022-04-26 12:24 | CT ---
EXAM: CT lumbar spine without contrast HISTORY: Breast cancer, metastasis COMPARISON: None TECHNIQUE: CT lumbar spine performed without intravenous contrast. Coronal and sagittal reformatted images obtained FINDINGS: Lytic lesion L5, measuring 1.1 cm The vertebral bodies normal height. No fracture. Multi level marginal osteophyte formation. Mild multilevel intervertebral space narrowing. Multilevel fac et arthrosis. Minimal anterolisthesis of L4-L5. Central canal grossly patent. Degenerative changes cause mild bilateral neural foraminal narrowing at L4-L5, L5-S1. IMPRESSION: 1. Lytic lesion L5, suspicious for metastasis. 2. No fracture. 3. Chronic discogenic degenerative disease and facet arthrosis. All CT scans are performed using dose optimization techniques as appropriate to the performed exam an d include at least one of the following: Automated exposure control, adjustment of the mA and/or kV according t o size, and the use of iterative reconstruction technique.
--- NOTE | 2022-04-26 12:26 | CT ---
EXAM: CT thoracic spine without contrast HISTORY: Breast cancer with metastasis COMPARISON: 10/13/2015 TECHNIQUE: CT thoracic spine performed without intravenous contrast. Coronal and sagittal reformatt ed images obtained. FINDINGS: No suspicious lytic or blastic lesions identified. Multilevel bridging syndesmophytes thr oughout the thoracic spine. Chronic discogenic degenerative disease with intervertebral space narrow ing. Central canal grossly patent. Please refer to separate report CT chest regarding findings in th e chest. IMPRESSION: 1. No suspicious lytic or blastic lesions identified. 2. Chronic discogenic degenerative. Possible diffuse idiopathic skeletal hyperostosis All CT scans are performed using dose optimization techniques as appropriate to the performed exam an d include at least one of the following: Automated exposure control, adjustment of the mA and/or kV according t o size, and the use of iterative reconstruction technique.
--- NOTE | 2022-04-26 12:35 | CT ---
EXAM: CT abdomen pelvis with contrast HISTORY: Breast cancer with metastasis COMPARISON: 04/25/2022 TECHNIQUE: CT abdomen pelvis performed with intravenous contrast. Coronal and sagittal reformatted images obtained. FINDINGS: There is a right breast masses with skin thickening. Please refer to separate report CT c hest regarding findings in the lower chest noting areas of lung nodularity. No free air. No acute a bnormalities of the bones. Lytic lesion L1. Lesions in the right hepatic lobe are very poorly visua lized on contrast enhanced CT. Patient status post cholecystectomy. Pancreas unremarkable. Spleen unremarkable. Adrenals unremarkable. Left renal cyst. Sub centimeter hypodensity right kidney, too small to characterize. No hydronephrosis. Aorta normal in caliber. Atherosclerosis that is greate st distally. Bladder only minimally distended. Small foci of air in the bladder lumen, likely relat e to recent instrumentation. Stable right adnexal mass measuring 7.5 x 3.9 cm. Uterus unremarkable. No lymphadenopathy or ascites. Stomach unremarkable. No dilated loops small bowel. Appendix not visualized. Colonic diverticulosis. Ventral hernias containing fat and a knuckle of transverse colo n. No evidence for obstruction. Postsurgical changes in the abdominal wall. IMPRESSION: 1. Right breast mass and skin thickening, highly suspicious for malignancy. 2. Liver lesions are very poorly visualized on contrast enhanced CT, though remains suspicious for m etastasis. Based on noncontrast CT. Recommend correlation with MRI liver protocol for further radha cterization. 3. L1 lytic lesion, suspicious for metastasis. 4. Stable right adnexal mass. 5. Colonic diverticulosis. 6. Ventral hernias containing to knuckles of transverse colon. No evidence for obstruction. 7. Small foci of air in the bladder lumen, likely relates to recent instrumentation. Recommend clin ical correlation. 8. Please refer to separate report CT chest regarding findings in the lower chest, noting pulmonary nodularity. All CT scans are performed using dose optimization techniques as appropriate to the performed exam an d include at least one of the following: Automated exposure control, adjustment of the mA and/or kV according t o size, and the use of iterative reconstruction technique.
--- NOTE | 2022-04-26 12:38 | CT ---
EXAM: CT thorax HISTORY: Breast cancer with metastasis TECHNIQUE: CT chest with and without intravenous contrast. Multiplanar images. FINDINGS: Compared to 03/11/2019. Heart size is normal. There is no pericardial effusion. There is mild to moderate atherosclerotic d isease. No definite coronary artery calcifications are seen. There are a few small indeterminate hi lar lymph nodes. Along the left upper lobe laterally, there is a pleural-based mass measuring 2.8 x 0.8 x 1.3 cm consistent with neoplasia. This is seen on axial image 26. Just posterior to this is o f another pleural-based 6 mm nodule and just anterior is a 5.3 mm parenchymal pulmonary nodule. In t he left suprahilar region there is a 11 mm nodule best seen on soft tissue windowed axial image 20. A few tiny right lung nodules appear stable since prior study. There is no vascular congestion or pl eural fluid. No acute infiltrate. Cannot exclude a few vague regions of lower rib sclerosis. Perip heral soft tissues demonstrate a deep right breast thick-walled mass with fluid density in its center and some associated microcalcifications. This may represent postop change. Residual neoplasia at t his level could be present. There is skin thickening of the anterior right breast. There is a secon d right breast mass measuring 2.6 cm. Otherwise the breast tissue density is heterogeneous and other small nodules are not excluded. See also same day CT abdomen and pelvis report. IMPRESSION: 1. Along the left upper lobe laterally, there is a pleural-based mass measuring 2.8 x 0.8 x 1.3 cm c onsistent with neoplasia. This is seen on axial image 26. Just posterior to this is of another pleu ral-based 6 mm nodule and just anterior is a 5.3 mm parenchymal pulmonary nodule. In the left suprah ilar region there is a 11 mm nodule best seen on soft tissue windowed axial image 20. A few tiny rig ht lung nodules appear stable since prior study. 2. There are a few small indeterminate hilar lymph nodes. 3. Peripheral soft tissues demonstrate a deep right breast thick-walled mass with fluid density in i ts center and some associated microcalcifications. This may represent postop change. Residual neopl stacy at this level could be present. There is skin thickening of the anterior right breast. There i s a second right breast mass measuring 2.6 cm. - - - - - All CT scans are performed using dose optimization techniques as appropriate to the performed exam an d include at least one of the following: Automated exposure control, adjustment of the mA and/or kV according t o size, and the use of iterative reconstruction technique.
--- NOTE | 2022-04-26 13:08 | CT ---
EXAM: CT head with and without contrast HISTORY: Breast cancer with metastasis COMPARISON: None TECHNIQUE: CT head performed with and without intravenous contrast. FINDINGS: There is no mass effect, midline shift, or intracranial hemmorhage. Morris white differenti ation is preserved. There is no extra-axial collection. The ventricles, sulci, and basal cisterns a re patent and symmetric. Nonspecific periventricular hypodensities, most likely chronic ischemic dis ease of the white matter. The There is no depressed calvarial fracture. The mastoid air cells are c lear. The visualized paranasal sinuses are clear. There are intracranial atherosclerotic calcificati ons. No abnormal area of enhancement. IMPRESSION: 1. No acute intracranial abnormality. No definitive evidence for metastatic disease. 2. Nonspecific periventricular hypodensities, most likely chronic ischemic disease of the white nacho er. All CT scans are performed using dose optimization techniques as appropriate to the performed exam an d include at least one of the following: Automated exposure control, adjustment of the mA and/or kV according t o size, and the use of iterative reconstruction technique.
[2022-04-26] MEDS: K-DUR PO SCH (16:47)
[2022-04-26] MEDS ORDERED: BENADRYL IM ONE (20:12)
[2022-04-26] MEDS: NEURONTIN PO SCH ×2 (20:14→20:15)
[2022-04-27] MEDS ORDERED: BENADRYL IM ONE (00:55)
[2022-04-27] MEDS: DILAUDID 1 MG/ML SYRINGE IVP PRN ×2 (01:55→07:09)
[2022-04-27 05:36] LABS: BASOPHILS % (AUTO) 0.5 % (0.0-3.0); EOSINOPHILS # (AUTO) 0.2 K/ul (0.0-0.7); EOSINOPHILS % (AUTO) 2.7 % (0.0-7.0); HEMATOCRIT 31.5 % (37.0-47.0); HEMOGLOBIN 9.7 g/dl (12.0-16.0); IMMATURE GRANULOCYTE % (AUTO) 0.2 % (0.0-5.0); LYMPHOCYTES # (AUTO) 2.8 K/uL (0.60-3.4); LYMPHOCYTES % (AUTO) 33.7 (10.0-50.0); MEAN CORPUSCULAR HEMOGLOBIN 24.3 pg (27.0-31.0); MEAN CORPUSCULAR HGB CONC 30.8 (31.8-35.4); MEAN CORPUSCULAR VOLUME 78.8 fl (81.0-99.0); MONOCYTES # (AUTO) 0.8 K/uL (0.4-2.0); MONOCYTES % (AUTO) 9.4 (0-10); NEUTROPHILS # (AUTO) 4.4 K/ul (2.0-6.9); NEUTROPHILS % (AUTO) 53.5 % (42.2-75.2); PLATELET COUNT 208 10^3/uL (140-440); RDW COEFFICIENT OF VARIATION 13.8 % (11.6-14.8)
[2022-04-27 05:54] LABS: ALANINE AMINOTRANSFERASE 13.1 U/L (0-35); ALBUMIN 3.43 g/dL (3.5-5.0); ALKALINE PHOSPHATASE 64.4 U/L (53-141); ASPARTATE AMINO TRANSFERASE 28.8 U/L (14-36); BILIRUBIN,TOTAL 0.21 mg/dL (0.2-1.3); BLOOD UREA NITROGEN 7.2 mg/dL (7-17); CALCIUM 8.92 mg/dL (8.4-10.2); CARBON DIOXIDE 28.4 mmol/L (22-30.0); CHLORIDE 103.3 mmol/L (98-107); CREATININE 0.66 mg/dL (0.60-1.30); GLUCOSE 157.3 mg/dL (74-106); POTASSIUM 3.66 mmol/L (3.5-5.1); SODIUM 138.2 mmol/L (134.5-145); TOTAL PROTEIN 6.84 g/dL (6.3-8.2)
[2022-04-27] MEDS: ZOFRAN 4 MG/2 ML IVP PRN (07:22)
[2022-04-27] MEDS ORDERED: PERCOCET 5-325 PO PRN (08:41)
[2022-04-27] MEDS ORDERED: ZOFRAN TAB PO PRN (08:42)
[2022-04-27] MEDS ORDERED: SODIUM CHLORIDE 1,000 ML IV SCH (08:44)
--- NOTE | 2022-04-27 08:54 | PCM.PROG ---
Attending Provider: ATTENDING PROVIDER: Dr. YUMIKO MCARTHUR This patient is seen with Xochitl Peck, Nurse Practitioner. DATE OF SERVICE: 04/27/22 SUBJECTIVE: This 66 year old /WHITE F was hospitalized 04/25/22. CT scans reviewed with the patient in detail. METS shown in L spine, liver and lungs. Prognosis discussed in detail. The patient had refused to acknowledge right breast cancer. States she is now willing to see oncologist. She declines Hospice at this time. Goal today will be to control pain and nausea with PO medications in hopes that she can go home and we will refer and hope to have oncology appointment next week. REVIEW OF SYSTEMS: CONSTITUTIONAL: No night sweats. No fatigue, malaise, lethargy. No fever or chills. HEENT: Eyes: No visual changes. No eye pain. No eye discharge. ENT: No runny nose. No epistaxis. No sinus pain. No odynophagia. No congestion. RESPIRATORY: No cough, no congestion. No hemoptysis. No shortness of breath. CARDIOVASCULAR: No angina symptoms. No CHF symptoms. No atypical chest pain for CAD. No palpitations. No orthopnea.. GASTROINTESTINAL: No abdominal pain. Nausea. No diarrhea or constipation. No hematemesis. No hematochezia. GENITOURINARY: No urgency. No frequency. No dysuria. No hematuria. No obstructive symptoms. No discharge. No pain. No significant abnormal bleeding. MUSCULOSKELETAL: No musculoskeletal pain; no joint swelling. Back pain NEUROLOGICAL: Awake, alert, oriented to time, place and person. No headache. No neck pain. No syncope. No seizures. No dizziness. PSYCHIATRIC: Anxious. No depression. No suicidal thoughts. No homicidal thoughts. SKIN: No rash. No lesions. No wounds. ENDOCRINE: No unexplained weight loss. No weight gain. HEMATOLOGIC/LYMPHATIC: No anemia. No purpura. No petechiae. No prolonged or excessive bleeding. No palpable lymph nodes. PHYSICAL EXAMINATION: GENERAL: The patient is awake, alert and oriented, sitting in bed in no distress. VITAL SIGNS: Temperature 97.6 F, Pulse 95, Respiratory Rate 18, BP 159/83, Pulse Ox 96% HEENT: Head normocephalic, atraumatic. Eyes: Extraocular muscles are intact. Pupils are equal, round and reactive to light and accommodation. Ears: No lesions. Nose appeared normal. Throat: No exudate or erythema. NECK: Supple. No JVD, no carotid bruit. No lymphadenopathy or thyromegaly. LUNGS: Diminished breath sounds. Clear to auscultation. Percussion note normal. Chest symmetrical. HEART: S1, S2, no S3. No murmurs. No cyanosis or clubbing. No ascites. Pulses: Dorsalis pedis and posterior tibial pulses +1 to +2 both sides. ABDOMEN: Soft. Non-tender. Bowel sounds active. No CVA tenderness. No mass felt. EXTREMITIES: No edema. Full range of motion of all extremities, equal. NEUROLOGIC: No focal deficit. Cranial nerves II through XII are grossly intact. No headache. No double vision. SKIN: Not dry. Intact. Turgor-normal. LYMPHATIC: No palpable lymph nodes/no lymphedema. MUSCULOSKELETAL: Normal joints with no swelling. Muscle tone is normal. LAB REVIEW: 04/27/22 05:29 04/27/22 05:29 04/27/22 05:29: Sodium 138.2, Potassium 3.66, Chloride 103.3, Carbon Dioxide 28.4, Anion Gap 10.16, BUN 7.2, Creatinine 0.66, Estimated GFR (MDRD) 90.00, BUN/Creatinine Ratio 10.90, Glucose 157.3 H, Calcium 8.92, Total Bilirubin 0.21, AST 28.8, ALT 13.1, Alkaline Phosphatase 64.4, Total Protein 6.84, Albumin 3.43 L, Globulin 3.41, Albumin/Globulin Ratio 1.00 04/27/22 05:29: WBC 8.30, RBC 4.00 L, Hgb 9.7 L, Hct 31.5 L, MCV 78.8 L, MCH 24.3 L, MCHC 30.8 L, RDW Coeff of Wilfredo 13.8, Plt Count 208, Immature Gran % (Auto) 0.2, Neut % (Auto) 53.5, Lymph % (Auto) 33.7, Garza % (Auto) 9.4, Eos % (Auto) 2.7, Baso % (Auto) 0.5, Neut # (Auto) 4.4, Lymph # (Auto) 2.8, Garza # (Auto) 0.8, Eos # (Auto) 0.2, Baso # (Auto) 0.0, Immature Gran # (Auto) 0.0 04/25/22 08:39: Insulin Level 40.2 H ASSESSMENT: Please see below. 1. Right breast cancer with METs to lung, liver and L spine 2. Persistent nausea 3. Loss of appetite 4. Diabetes Mellitus type II 5. Long history of noncompliance with medications, lifestyle and followup. PLAN: 1. Attempt to not give Dilaudid 2. Discontinue [place] 3. Give Percocet 5mg Q hours PRN and Zofran 8mg tablet Q 6 hours PRN today 4. Decrease IV fluids to 50cc Plan and coordination of the patient's care discussed in the presence of [employer] and nurse. SCRIBED BY: KY ANDERSON, Outboard Motor Mechanic scribed while in presence of service performed by Dr. Mcarthur/Xochitl Peck APRN on 04/27/22 ([id number])
[2022-04-27] MEDS: PROTONIX IV IVP SCH ×2 (09:00→20:23)
[2022-04-27] MEDS: XANAX PO PRN ×2 (09:00→22:38)
[2022-04-27] MEDS: BENADRYL PO PRN ×2 (09:00→20:23)
[2022-04-27] MEDS: K-DUR PO SCH ×2 (09:00→17:18)
[2022-04-27] MEDS: ZESTRIL PO SCH (09:00)
[2022-04-27] MEDS: ROCEPHIN 1 GM/50 ML D5W 1 GM/50 ML BAG IV SCH (09:07)
[2022-04-27] MEDS: SODIUM CHLORIDE 1,000 ML IV SCH (09:54)
--- NOTE | 2022-04-27 10:03 | PN ---
DATE OF SERVICE: 04/25/22 SUBJECTIVE: Mrs. Oglesby was seen and examined in the ER. The patient presented to the emergency room because she was having nausea and vomiting. The patient's symptoms of gastroenteritis are somewhat better. She is also complaining of low back pain which she has it for number of years, it has been worse. She underwent CT scan of the abdomen for mild abdominal pain, no acute finding but the patient shows possibility of liver METS also showed right sided breast mass which is known to the primary care. She was diagnosed to have breast mass approximately in November 2021 but the patient declined to have anything done about it. She didn't want any further workup with history of right breast cancer. Hematology/Oncologist was Dr. Spicer and she was operated upon in [place] by Dr. Zapien more than 10 years ago. The patient is noncompliance in her lifestyle, medications and followups or diet. I talked to her about her resuscitation status and she doesn't want to be resuscitated. The patient was more concerned about her son who has appointment tomorrow at [place] but she agreed that she would stay if she needs to. The patient is going to be given Dilaudid 1mg for her back pain. REVIEW OF SYSTEMS: CONSTITUTIONAL: No night sweats. No fatigue, malaise, lethargy. No fever or chills. HEENT: Eyes: No visual changes. No eye pain. No eye discharge. ENT: No runny nose. No epistaxis. No sinus pain. No sore throat. No odynophagia. No congestion. RESPIRATORY: No cough, no congestion. No hemoptysis. No shortness of breath. CARDIOVASCULAR: No angina symptoms. No CHF symptoms. No atypical chest pain for CAD. No palpitations. No PND. No orthopnea. GASTROINTESTINAL: No abdominal pain. No nausea or vomiting. No diarrhea or constipation. No hematemesis. No hematochezia. GENITOURINARY: No urgency. No frequency. No dysuria. No hematuria. No obstructive symptoms. No discharge. No pain. No significant abnormal bleeding. MUSCULOSKELETAL: No musculoskeletal pain; no joint swelling. NEUROLOGICAL: No headache. No neck pain. No syncope. No seizures. No dizziness. PSYCHIATRIC: Not anxious. No depression. No suicidal thoughts. No homicidal thoughts. SKIN: No rash. No lesions. No wounds. ENDOCRINE: No unexplained weight loss. No weight gain. HEMATOLOGIC/LYMPHATIC: No anemia. No purpura. No petechiae. No prolonged or excessive bleeding. No palpable lymph nodes. PHYSICAL EXAMINATION: HEENT: Head normocephalic, atraumatic. Eyes: Extraocular muscles are intact. Pupils are equal, round and reactive to light and accommodation. Ears: No lesions. Nose appeared normal. Throat: No exudate or erythema. NECK: Supple. No JVD, no carotid bruit. No lymphadenopathy or thyromegaly. LUNGS: Clear to auscultation. Percussion note normal. Chest symmetrical. HEART: S1, S2, no S3. No murmurs. No cyanosis or clubbing. No ascites. Pulses: Dorsalis pedis and posterior tibial pulses +2 bilaterally. ABDOMEN: Soft. Nontender. Bowel sounds active. No CVA tenderness. No mass felt. EXTREMITIES: No edema. Full range of motion of all extremities, equal. NEUROLOGIC: No focal deficit. Cranial nerves II through XII are grossly intact. No headache. No double vision. SKIN: Not dry. Intact. Turgor - normal. LYMPHATIC: No palpable lymph nodes/no lymphedema. MUSCULOSKELETAL: Normal joints with no swelling. Muscle tone is normal. LABS: CT scan of the abdomen reviewed. Chest x-ray showed atelectasis, no masses noted. Right breast mass noted. ASSESSMENT: 1. Acute gastroenteritis 2. Dehydration 3. Breast cancer right side, recurrence with liver METS 4. Hepatic steatosis 5. Diabetes Mellitus 6. Hypertension 7. Dyslipidemia PLAN: 1. Follow the patient with sliding scale 2. Telemetry 3. Dilaudid for pain times one 4. Will also CT scan of the L spine and T spine 5. CT scan of the chest 6. CT of the brain 7. The patient was explained about the findings in detail. She doesn't want anything more done at present time except for the CAT scan. CONDITION: Stable. TIME SPENT: More than 30 minutes. Plan and coordination of the patient's care discussed in the presence of nurse. EMMA
--- NOTE | 2022-04-27 11:34 | PN ---
DATE OF SERVICE: 04/26/22 SUBJECTIVE: 66 year old white female hospitalized with acute gastroenteritis type of symptoms with vomiting and nausea. The patient's nausea and vomiting has practically subsided. She is feeling better. REVIEW OF SYSTEMS: CONSTITUTIONAL: No night sweats. No fatigue, malaise, lethargy. No fever or chills. HEENT: Eyes: No visual changes. No eye pain. No eye discharge. ENT: No runny nose. No epistaxis. No sinus pain. No sore throat. No odynophagia. No congestion. RESPIRATORY: No cough, no congestion. No hemoptysis. No shortness of breath. CARDIOVASCULAR: No angina symptoms. No CHF symptoms. No atypical chest pain for CAD. No palpitations. No PND. No orthopnea. GASTROINTESTINAL: No abdominal pain. No nausea or vomiting. No diarrhea or constipation. No hematemesis. No hematochezia. GENITOURINARY: No urgency. No frequency. No dysuria. No hematuria. No obstructive symptoms. No discharge. No pain. No significant abnormal bleeding. MUSCULOSKELETAL: No musculoskeletal pain; no joint swelling. NEUROLOGICAL: No headache. No neck pain. No syncope. No seizures. No dizziness. PSYCHIATRIC: Not anxious. No depression. No suicidal thoughts. No homicidal thoughts. SKIN: No rash. No lesions. No wounds. ENDOCRINE: No unexplained weight loss. No weight gain. HEMATOLOGIC/LYMPHATIC: No anemia. No purpura. No petechiae. No prolonged or excessive bleeding. No palpable lymph nodes. PHYSICAL EXAMINATION: VITAL SIGNS: Temperature 97.6, pulse 90, respiratory rate 20, blood pressure 140/66 and pulse ox 96%. HEENT: Head normocephalic, atraumatic. Eyes: Extraocular muscles are intact. Pupils are equal, round and reactive to light and accommodation. Ears: No lesions. Nose appeared normal. Throat: No exudate or erythema. NECK: Supple. No JVD, no carotid bruit. No lymphadenopathy or thyromegaly. LUNGS: Decreased breath sounds but clear to auscultation. Percussion note normal. Chest symmetrical. HEART: S1, S2, no S3. No murmurs. No cyanosis or clubbing. No ascites. Pulses: Dorsalis pedis and posterior tibial pulses +1 to +2 bilaterally. ABDOMEN: Soft. Nontender. Bowel sounds active. No CVA tenderness. No mass felt. EXTREMITIES: No edema. Full range of motion of all extremities, equal. NEUROLOGIC: No focal deficit. Cranial nerves II through XII are grossly intact. No headache. No double vision. SKIN: Not dry. Intact. Turgor - normal. LYMPHATIC: No palpable lymph nodes/no lymphedema. MUSCULOSKELETAL: Normal joints with no swelling. Muscle tone is normal. LABS: hgb 9.6,hct 30, WBC 8,300 normal differential, creatinine 0.6, BUN 8, potassium 3.1. Troponin negative. Glucose 158. ASSESSMENT: 1. Acute gastroenteritis seems to have subsided 2. Chronic anemia 3. Diabetes Mellitus 4. Liver METS with right breast mass 5. History of breast cancer, mastectomy on the right 6. Hypokalemia is a new problem which is being treated with Potassium supplements. PLAN: 1. The patient is going to be K-Dur 20meq PO TID 2. Dilaudid 1mg TID to be given for pain 3. The patient is to have CT of the spine, T spine, chest and abdomen with contrast today CONDITION: Stable. The patient has been told all the findings including possibility of liver METS with definite evidence of right breast mass. The patient says that she does not want anything to be done at present time. The patient is DNR. TIME SPENT: More than 30 minutes. Plan and coordination of the patient's care discussed in the presence of nurse. EMMA
[2022-04-27] MEDS ORDERED: CITRATE OF MAGNESIA PO ONE (13:39)
[2022-04-27] MEDS ORDERED: PERCOCET 7.5-325 PO PRN (14:00)
[2022-04-27] MEDS: PERCOCET 7.5-325 PO PRN ×2 (18:45→22:38)
[2022-04-27] MEDS: NEURONTIN PO SCH (20:23)
[2022-04-28] MEDS: PERCOCET 7.5-325 PO PRN ×2 (02:28→06:32)
[2022-04-28 05:22] LABS: BASOPHILS % (AUTO) 0.5 % (0.0-3.0); EOSINOPHILS # (AUTO) 0.2 K/ul (0.0-0.7); HEMATOCRIT 28.9 % (37.0-47.0); IMMATURE GRANULOCYTE % (AUTO) 0.2 % (0.0-5.0); LYMPHOCYTES # (AUTO) 2.4 K/uL (0.60-3.4); LYMPHOCYTES % (AUTO) 39.5 (10.0-50.0); MEAN CORPUSCULAR HEMOGLOBIN 24.4 pg (27.0-31.0); MEAN CORPUSCULAR HGB CONC 31.1 (31.8-35.4); MEAN CORPUSCULAR VOLUME 78.3 fl (81.0-99.0); MONOCYTES # (AUTO) 0.6 K/uL (0.4-2.0); MONOCYTES % (AUTO) 9.9 (0-10); NEUTROPHILS # (AUTO) 2.8 K/ul (2.0-6.9); NEUTROPHILS % (AUTO) 46.9 % (42.2-75.2); PLATELET COUNT 194 10^3/uL (140-440); RDW COEFFICIENT OF VARIATION 13.8 % (11.6-14.8); RED BLOOD COUNT 3.69 10^6/ul (4.20-5.40); WHITE BLOOD COUNT 6.05 K/ul (4.6-10.2)
[2022-04-28 05:34] LABS: ALANINE AMINOTRANSFERASE 13.9 U/L (0-35); ALBUMIN 3.28 g/dL (3.5-5.0); ASPARTATE AMINO TRANSFERASE 29.5 U/L (14-36); BILIRUBIN,TOTAL 0.27 mg/dL (0.2-1.3); BLOOD UREA NITROGEN 7.4 mg/dL (7-17); CALCIUM 8.86 mg/dL (8.4-10.2); CARBON DIOXIDE 28.6 mmol/L (22-30.0); CHLORIDE 104.6 mmol/L (98-107); CREATININE 0.66 mg/dL (0.60-1.30); POTASSIUM 3.63 mmol/L (3.5-5.1); SODIUM 138.4 mmol/L (134.5-145); TOTAL PROTEIN 6.56 g/dL (6.3-8.2)
[2022-04-28] MEDS: PROTONIX IV IVP SCH (09:13)
[2022-04-28] MEDS: ROCEPHIN 1 GM/50 ML D5W 1 GM/50 ML BAG IV SCH (09:14)
[2022-04-28] MEDS: ZESTRIL PO SCH (09:14)
[2022-04-28] MEDS: K-DUR PO SCH (09:14)
--- NOTE | 2022-04-28 09:42 | PCM.PROG ---
Attending Provider: ATTENDING PROVIDER: Dr. YUMIKO MCARTHUR DATE OF SERVICE: 04/28/22 SUBJECTIVE: This 66 year old /WHITE F was hospitalized 04/25/22 with nausea, vomiting and hyperglycemia. The patient on further workup has breast mass which was known on right side but now has METS to liver and bones. The patient is going to be seen by Dr. Hatch at [facility], Oncologist, appointment is next week. REVIEW OF SYSTEMS: CONSTITUTIONAL: No night sweats. No fatigue, malaise, lethargy. No fever or chills. HEENT: Eyes: No visual changes. No eye pain. No eye discharge. ENT: No runny nose. No epistaxis. No sinus pain. No odynophagia. No congestion. RESPIRATORY: No cough, no congestion. No hemoptysis. No shortness of breath. CARDIOVASCULAR: No angina symptoms. No CHF symptoms. No atypical chest pain for CAD. No palpitations. No orthopnea.. GASTROINTESTINAL: No abdominal pain. No nausea or vomiting. No diarrhea or constipation. No hematemesis. No hematochezia. GENITOURINARY: No urgency. No frequency. No dysuria. No hematuria. No obstructive symptoms. No discharge. No pain. No significant abnormal bleeding. MUSCULOSKELETAL: No musculoskeletal pain; no joint swelling. Back pain. Up and about. NEUROLOGICAL: Awake, alert, oriented to time, place and person. No headache. No neck pain. No syncope. No seizures. No dizziness. PSYCHIATRIC: Not anxious. No depression. No suicidal thoughts. No homicidal thoughts. SKIN: No rash. No lesions. No wounds. ENDOCRINE: No unexplained weight loss. No weight gain. HEMATOLOGIC/LYMPHATIC: No anemia. No purpura. No petechiae. No prolonged or excessive bleeding. No palpable lymph nodes. PHYSICAL EXAMINATION: GENERAL: The patient is awake, alert and oriented, sitting in bed in no distress. VITAL SIGNS: Temperature 97.7 F, Pulse 99, Respiratory Rate 18, BP 148/60, Pulse Ox 99% HEENT: Head normocephalic, atraumatic. Eyes: Extraocular muscles are intact. Pupils are equal, round and reactive to light and accommodation. Ears: No lesions. Nose appeared normal. Throat: No exudate or erythema. NECK: Supple. No JVD, no carotid bruit. No lymphadenopathy or thyromegaly. LUNGS: Clear to auscultation. Percussion note normal. Chest symmetrical. HEART: S1, S2, no S3. Grade II/ systolic murmur. No cyanosis or clubbing. No ascites. Pulses: Dorsalis pedis and posterior tibial pulses +1 to +2 both sides. ABDOMEN: Soft. Non-tender. Bowel sounds active. No CVA tenderness. No mass felt. EXTREMITIES: No edema. Full range of motion of all extremities, equal. No localized tenderness to spine. NEUROLOGIC: No focal deficit. Cranial nerves II through XII are grossly intact. No headache, no double vision or headache. SKIN: Warm and dry. Intact. Turgor-normal. LYMPHATIC: No palpable lymph nodes/no lymphedema. MUSCULOSKELETAL: Normal joints with no swelling. Muscle tone is normal. LAB REVIEW: 04/28/22 05:17 04/28/22 05:17 04/28/22 05:17: Sodium 138.4, Potassium 3.63, Chloride 104.6, Carbon Dioxide 28.6, Anion Gap 8.83, BUN 7.4, Creatinine 0.66, Estimated GFR (MDRD) 90.00, BUN/Creatinine Ratio 11.21, Glucose 128.0 H, Calcium 8.86, Total Bilirubin 0.27, AST 29.5, ALT 13.9, Alkaline Phosphatase 62.0, Total Protein 6.56, Albumin 3.28 L, Globulin 3.28, Albumin/Globulin Ratio 1.00 04/28/22 05:17: WBC 6.05, RBC 3.69 L, Hgb 9.0 L, Hct 28.9 L, MCV 78.3 L, MCH 24.4 L, MCHC 31.1 L, RDW Coeff of Wilfredo 13.8, Plt Count 194, Immature Gran % (Auto) 0.2, Neut % (Auto) 46.9, Lymph % (Auto) 39.5, [place] % (Auto) 9.9, Eos % (Auto) 3.0, Baso % (Auto) 0.5, Neut # (Auto) 2.8, Lymph # (Auto) 2.4, [place] # (Auto) 0.6, Eos # (Auto) 0.2, Baso # (Auto) 0.0, Immature Gran # (Auto) 0.0 ASSESSMENT: Please see below. 1. Acute gastroenteritis, resolved 2. Hypokalemia, resolved 3. 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 History of right breast cancer more than 10 years ago, seen by Dr. Spicer had surgery in [place] by Dr. Vera PLAN: 1. Going to be discharge on Percocet 7.5-325mg three times a day PRN 2. Advised not to take [place] 3. The patient strongly advised not to drive with METS to lumbar spine, not to carry anything heavy, practically bed rest 4. See in next in my office 5. Omnicef 300mg PO BID FOR 5 days for pneumonia she had on admission mixed with UTI. Plan and coordination of the patient's care discussed in the presence of Assistant [employer] and nurse. CONDITION: Stable SCRIBED BY: [place] ANDERSON Laboratory Director scribed while in presence of service performed by Dr. YUMIKO MCARTHUR on 04/28/22 ([id number])
[2022-04-28 10:20] VITALS: TEMP 97.5
[2022-04-28 10:43] VITALS: BP 156/74
--- NOTE | 2022-04-28 14:38 | PN ---
DATE OF SERVICE: 04/27/22 SUBJECTIVE: The patient was seen and examined with the Nurse Practitioner. The patient's condition is stable. She is not throwing up or vomiting. Vitals are stable. She is declining Hospice consultation. Thoroughly explained about all the findings in detail. She has agreed to see Hematology/Oncologist. He doesn't accept any new patients so she will be referred to [place]. TIME SPENT: More than 30 minutes. Plan and coordination of the patient's care discussed in the presence of nurse. EMMA
--- NOTE | 2022-05-01 10:15 | DS ---
DATE OF SERVICE: 04/28/22 FINAL DIAGNOSIS: 1. Acute gastroenteritis, resolved 2. Hypokalemia, resolved 3. 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 4. History of right breast cancer more than 10 years ago followed by Dr. Spicer. The surgery was performed by Dr. Perez in [place] 5. COVID pneumonia 08/2021 6. Atrial fibrillation with COVID 7. Diabetes mellitus, Uncontrolled because of noncompliance 8. Hypertension 9. Dyslipidemia 10. B12 deficiency 11. History of pulmonary nodules 12. Left total knee replacement 13. Noncompliance of all aspects of medical care 14. Status post abdominal wound with wound vac, excision 11/05 DISCHARGE INSTRUCTIONS: Discharge home today. Self care at home. Followup appointment with Dr. Bo office on May 04 at 11:45. Referral has been made to Dr. Alex Hatch with [facility] Oncology and hematology. Continue all other home medications. MEDICATIONS AT DISCHARGE: Metformin 500mg PO BID Protonix 20mg PO daily Gabapentin 300mg PO bedtime Ondansetron 4mg PO Q 6 hours PRN Lisinopril 40mg PO daily Tizanidine 2mg PO BID PRN Alprazolam 0.25mg PO BID PRN NEW PRESCRIPTIONS: PERCOCET 7.5/325MG TAKE 3 TIMES A DAY BY MOUTH IF NEEDED, FOR MODERATE TO SEVERE PAIN. ( PRESCRIPTION PROVIDED ) OMNICEF 300MG TWO TIMES A DAY BY MOUTH FOR 5 DAY, TO RESOLVE URINARY TRACT INFECTION. ( PRESCRIPTION PROVIDED ) BENADRYL 25 MG EVERY 6 HOURS BY MOUTH NEEDED FOR ITCHING. ( OVER THE COUNTER ) DISCONTINUED MEDICATIONS: DO NOT TAKE [place] DIET INSTRUCTIONS: Consistent carbohydrate with Bedtime snack. No milk, cheese or bread. 64 ounces of fluids daily. ACTIVITY: As tolerated. Resume normal activity. No not attempt strenuous activity. Avoid outdoor activities during hot and humid conditions. Advised not driving. no heavy lifting. HOSPITAL COURSE: 66 year old white female hospitalized with acute gastroenteritis. On further workup the patient had breast mass which showed on a CAT scan which was a known thing for past 6 months with now METS to the liver and bones. The patient was treated with IV fluids, Zofran and acute gastroenteritis resolved. COVID negative. The patient was referred to Dr. Hatch at [facility] for her right breast mass with METS. She has history of right breast cancer more than 10 years [address] followed by Dr. Spicer and the surgery was performed on the right breast by Dr. Perez in [place]. She had stopped going to Oncologist for a number years. She had declined any further workup, she had even decline any further workup in November when it was noted that she had a right breast mass. The patient is noncompliant about diet, diabetes, followup. The patient's medications was switched to Percocet 7.5/325mg TID PRN for pain total given 25 of them. Advised not to take any [place]. The patient is strongly advised not to drive until further orders or seen by Dr. Hatch, don't lift anything heavy, advised to rest. Findings of METS in the spine discussed and possibility of paralysis with some injury can happen quickly. She is to be seen by me next . She is also going to be on Omnicef 300mg twice a day for 5 days for possibility of pneumonitis or UTI. Labs on discharge; hgb 9, hct 28, WBC 6,000 normal differential, creatinine 0.6, BUN 7.5, potassium 3.6. The patient has been thoroughly explained practically everyday about her conditions and findings. PROGNOSIS: POOR. The patient declined Hospice. TIME SPENT: More than 60 minutes. MTDD
--- NOTE | 2022-05-01 10:16 | PN ---
ADMISSION DAY: Level 5 REST OF THEM: Intermediate FINAL DAY: D as in discharge MTDD
== END 2022-04-28 10:44 | disposition home or self-care (01) | DRG 392 ==
LOC: ED 07:56 → MEDSURG A 11:42
PROVIDERS: ADMIT Internal Medicine; ATTEND Internal Medicine
DX: Z51.81 Encounter for therapeutic drug level monitoring; C78.7 Secondary malignant neoplasm of liver and intrahepatic bile duct; Z28.310 Unvaccinated for COVID-19; I10 Essential (primary) hypertension; N63.10 Unspecified lump in the right breast, unspecified quadrant; C79.51 Secondary malignant neoplasm of bone; E11.9 Type 2 diabetes mellitus without complications; Z91.14 Patient's other noncompliance with medication regimen; R11.10 Vomiting, unspecified; Z85.3 Personal history of malignant neoplasm of breast; K52.9 Noninfective gastroenteritis and colitis, unspecified; E78.5 Hyperlipidemia, unspecified; Z79.899 Other long term (current) drug therapy; Z87.09 Personal history of other diseases of the respiratory system; Z20.822 Contact with and (suspected) exposure to COVID-19; E88.89 Other specified metabolic disorders; E87.6 Hypokalemia; Z91.19 Patient's noncompliance with other medical treatment and regimen; R73.9 Hyperglycemia, unspecified